=== PATIENT | male | born 1940 | race Caucasian/White ===

== ENCOUNTER 2017-02-18 06:55 | Outpatient (CLI) | payer MEDICARE ==
[~2017-02-18] VITALS: Ht 180.3 cm; Wt 93.2 kg
--- NOTE | ~2017-02-18 | HEMODYNAMI ---
PATIENT:ADAN KERR MEDICAL RECORD: [id number] : 42 LOCATION:DJoeCAT ADMISSION DATE: 02/18/17 Generatedon:02/18/201710:00 Patient name: ADAN KERR Patient #: [id number] : 1940 Date of study: 02/18/2017 Page: Of Hemodynamic Procedure Report Patient Data Patient Demographics Procedure consent was obtained First Name: ADAN Gender: Male Last Name: USHA : 1940 Middle Initial: L Age: 76 year(s) Patient #: [id number] Race: Unknown SSN: [id number] Additional ID: [id number] Contact details [address]: [address] [place] [address] State: [place] City: [place] Zip code: [address] Past Medical History Allergies Allergen Reaction Date Comments Reported Other allergy 02/18/2017 [facility] Admission Admission Data Admission Date: 02/18/2017 Admission Time: 6:55 Arrival Date: 02/18/2017 Arrival Time: 0:00 Admit Source: Other Insurance Payor: Medicare Height (in.): 70 BSA: 2.16 (m2) Height (cm.): 177.8 BMI: 30.99 (kg/m2) Weight (lbs.): 216 Weight (kg.): 97.98 Lab Results Lab Result Date: 02/18/2017 Lab Result Time: 0:00 Biochemistry Name Units Result Min Max BUN mg/dl 19 --(----)*- 7 18 Creatinine mg/dl 1 --(--*-)-- 0.6 1.3 CBC Name Units Result Min Max Hemoglobin g/dl 15.3 --(-*--)-- 13.5 17.5 Procedure Procedure Types Cath Procedure Diagnostic Procedure LHC LH w/Coronaries Miscellaneous Procedures Moderate Sedation up to 15 minutes Procedure Description Procedure Date Procedure Date: 02/18/2017 Procedure Start Time: 9:46 Procedure End Time: 9:59 Procedure Staff Name Function Jhon Bingham MD Performing Physician Valerio Cheek RT Scrub Gloria Euceda RT Monitor Arely Muñoz RN Nurse Procedure Data Cath Procedure Fluoroscopy Diagnostic fluoroscopy Total fluoroscopy Time: 1.6 time: 1.6 min min Diagnostic fluoroscopy Total fluoroscopy dose: 670 dose: 670 mGy mGy Contrast Material Contrast Material Type Amount (ml) Isovue 300 72 Entry Location Entry Primary Successful Side Size Upsize Upsize Entry Closure Matos ccessful Closure Location (Fr) 1 (Fr) 2 (Fr) Remarks Device Remarks Radial Right 6 Fr Mechanical TR band artery Short Compression Estimated blood loss: 10 ml Diagnostic catheters Device Type Used For End Catheter Placement Terumo 5Fr Demond 110cm Procedure catheter Procedure Complications No complications Procedure Medications Medication Administration Route Dosage Oxygen NC 2 l/min Heparin Flush Bag added to field 2 bags (1000units/500ml NS) Lidocaine 2% added to field 20 Radial Cocktail added to field 1 syringe (Verapomil 2mg/Nitro 400mcg/Heparin 1500units) Versed I.V. 1 mg Fentanyl I.V. 50 mcg Radial Cocktail I.A. 1 syringe (Verapomil 2mg/Nitro 400mcg/Heparin 1500units) Versed I.V. 1 mg Fentanyl I.V. 50 mcg Hemodynamics Rest BSA: 2.16 (m2) HGB: 15.3 (g/dl) O2 Consumption: Estimated: 237.87 (ml/min) O2 Co nsumption indexed: Estimated:110.12 (ml/min/m) Heart Rate: 57 (bpm) Pressure Samples Time Site Value (mmHg) Purpose Heart Use Rate(bpm) 9:47 LV 116/-5,7 Snapshot 79 9:48 AO 96/49(65) Pullback 77 9:48 LV 103/-5,4 Pullback 77 Gradients Valve Time Site 1 Site 2 Mean SEP/DFP Peak To Heart Use (mmHg) (sec/min) Peak Rate (mmHg) (bpm) Aortic 9:48 LV AO 11 6 7 77 103/-5,4 96/49(65) Calculations Valve P-P Mean Valve Index Valve Source Name Gradient Area Flow (cm2) Aortic 7 11 7 11 Snapshots Pre Cath Intra NCS Post Cath Vital Signs Time Heart Resp SPO2 NIBP (mmHg) Rhythm Pain Sedation Rate (ipm) (%) Status Level (bpm) 9:19:45 61 15 97 137/75(117) NSR 0 (11) 10(A) , No pain 9:24:03 66 17 98 129/74(104) NSR 0 (11) 10(A) , No pain 9:28:17 57 17 98 133/74(111) NSR 0 (11) 10(A) , No pain 9:32:31 61 20 98 139/77(122) NSR 0 (11) 10(A) , No pain 9:36:45 65 16 96 128/73(105) NSR 0 (11) 10(A) , No pain 9:40:59 76 16 97 118/69(88) NSR 0 (11) 10(A) , No pain 9:45:11 70 16 98 113/65(99) NSR 0 (11) 10(A) , No pain 9:49:20 68 18 97 112/58(92) NSR 0 (11) 9(A) , No pain 9:53:33 72 18 98 111/59(91) NSR 0 (11) 9(A) , No pain 9:57:42 69 19 96 108/63(82) NSR 0 (11) 9(A) , No pain Medications Time Medication Route Dose Verified Delivered Reason Notes E ffectiveness by by 9:27:02 Oxygen NC 2 l/min Jhon Arely Per Zachery Muñoz RN physician 9:27:15 Heparin Flush added 2 bags Jhon Jhon used for Bag to Zachery Bingham MD procedure (1000units/500ml field NS) 9:27:24 Lidocaine 2% added 20ml Jhon Jhon used for to vial Zachery Bingham MD procedure field 9:27:29 Radial Cocktail added 1 Jhon Jhon used for (Verapomil to syringe Zachery Bingham MD procedure 2mg/Nitro field 400mcg/Heparin 1500units) 9:43:00 Versed I.V. 1 mg Jhon Arely for sedation Zachery Muñoz RN 9:43:08 Fentanyl I.V. 50 mcg Jhon Arely for sedation Zachery Muñoz RN 9:45:09 Versed I.V. 1 mg Jhon Arely for sedation Zachery Muñoz RN 9:45:19 Fentanyl I.V. 50 mcg Jhon Arely for sedation Zachery Muñoz RN 9:47:00 Radial Cocktail I.A. 1 Jhon Ferreira for (Verapomil syringe Zachery Bingham MD vasodilation 2mg/Nitro 400mcg/Heparin 1500units) Procedure Log Time Note 8:13:31 Admit Source: Other 8:13:35 Arrival Date: 02/18/2017 12:00:00 AM 8:13:41 Insurance Payor : Medicare 8:13:59 Patient Height : 177.8 cm 8:14:06 Patient Weight : 97.98 kg 8:14:45 Diagnostic Cath Status : Elective 8:15:46 Time tracking: Regular hours 8:15:51 Plan of Care:Hemodynamics will remain stable., Cardiac rhythm will remain stable., Comfort level will be maintained., Respiratory function will remain adequate., Patient/ family verbilizes understanding of procedure., Procedure tolerated without complication., Recovers from procedure without complications.. 8:19:25 Lab Result : Hemoglobin 15.3 g/dl 8:19:25 Lab Result : Creatinine 1 mg/dl 8:19:25 Lab Result : BUN 19 mg/dl 9:00:45 Gloria Euceda RT(R) sent for patient. Start room use. 9:18:38 Vital chart was started 9:22:08 Use device set Radial Dx 9:22:09 Acist Syringe opened to sterile field. 9:22:09 Medline Cath Pack opened to sterile field. 9:22:10 Bag Decanter opened to sterile field. 9:22:10 Terumo 6Fr Slender Glidesheath opened to sterile field. 9:22:11 St Rob 260cm J .035 wire opened to sterile field. 9:22:11 Acist Hand Control opened to sterile field. 9:22:12 Acist Manifold opened to sterile field. 9:22:12 Tegaderm 4 x 4 opened to sterile field. 9:22:13 MBrace Wrist Support opened to sterile field. 9:27:02 Oxygen 2 l/min NC was administered by Arely Muñoz RN; Per physician; 9:27:15 Heparin Flush Bag (1000units/500ml NS) 2 bags added to field was administered by Jhon Bingham MD; used for procedure; 9:27:24 Lidocaine 2% 20ml vial added to field was administered by Jhon Bingham MD; used for procedure; 9:27:29 Radial Cocktail (Verapomil 2mg/Nitro 400mcg/Heparin 1500units) 1 syringe added to field was administered by Jhon Bingham MD; used for procedure; 9:32:33 Patient received from Outpatients to CCL 2 Alert and oriented. Tansferred to table in Supine position. 9:32:35 Warm blankets applied, and ruiz hugger turned on for patient comfort. 9:32:35 Correct patient and procedure confirmed by team. 9:32:38 Signed procedure consent form obtained from patient. 9:32:39 ECG and BP/O2 sat monitors applied to patient. 9:32:41 Baseline sample Acquired. 9:32:46 Rhythm: sinus rhythm 9:32:48 Full Disclosure recording started 9:33:05 H&P Date Dictated: 02/03/2017 Within 30 days and on chart., H&P Addendum completed by physician on day of procedure. (MUST COMPLETE FOR ALL OUTPATIENTS). 9:33:07 Pre-procedure instructions explained to patient. 9:33:09 Family in waiting room. 9:33:12 Patient NPO since Midnight. 9:33:26 Patient allergic to Other allergyPCN 9:33:29 Is the patient allergic to Iodine/contrast media? No. 9:33:32 Is patient on blood thinner?No 9:33:33 Patient diabetic? Yes. 9:33:34 If diabetic: On Metformin? Yes 9:33:39 If on Metformin: Last Dose? 02/16/2017 9:33:45 Snore? Yes 9:33:47 Sleep apnea? No 9:34:13 Patient pain scale 0/10 ?. 9:34:21 IV patent on arrival in left forearm with 0.9% NaCl at KVO. 9:34:29 Lab results completed and on chart. 9:34:32 Right Radial & Right Groin area was prepped with chlora-prep and draped in sterile fashion 9:34:34 Alarms reviewed by R. N. 9:34:34 Sharps counted by scrub and verified by R.N. 9:34:35 Physician paged 9:42:54 Physician arrived 9:42:55 --------ALL STOP TIME OUT------ 9:42:56 Final Timeout: patient, procedure, and site verified with staff and physician. All members of the team are in agreement. 9:42:58 Right Radial & Right Groin site verified by team. 9:43:00 Versed 1 mg I.V. was administered by Arely Muñoz RN; for sedation; 9:43:03 Sedation plan: IV Moderate Sedation Versed, Fentanyl 9:43:08 Fentanyl 50 mcg I.V. was administered by Arely Muñoz RN; for sedation; 9:43:08 Physical assessment completed. ASA score P 2 - A patient with mild systemic disease as per Jhon Bingham MD. 9:45:09 Versed 1 mg I.V. was administered by Arely Muñoz RN; for sedation; 9:45:19 Fentanyl 50 mcg I.V. was administered by Arely Muñoz RN; for sedation; 9:45:50 Procedure started. 9:46:03 Local anesthetic to right radial artery with Lidocaine 2% by Jhon Bingham MD.INITIAL ACCESS ONLY 9:46:42 A 6 Fr Short sheath was inserted into the Right Radial artery 9:46:52 J wire advanced. 9:47:00 Radial Cocktail (Verapomil 2mg/Nitro 400mcg/Heparin 1500units) 1 syringe I.A. was administered by Jhon Bingham MD; for vasodilation; 9:47:20 A Terumo 5Fr Demond 110cm catheter was advanced over the wire and used for Procedure. 9:47:24 LV angiography performed. 9:47:54 EF : 55 % 9:48:19 LCA angiography performed. 9:53:04 RCA angiography performed. 9:54:51 Catheter removed. 9:55:18 Terumo TR Band Standard opened to sterile field. 9:55:59 Sheath removed intact; hemostasis achieved with Mechanical Compression to the Right Radial artery. 9:56:03 Procedure ended.(Physican Out) 9:56:13 Fluoroscopy time 01.60 minutes. 9:56:22 Fluoroscopy dose: 670 mGy 9:56:22 Flurop Dose total: 670 9:56:26 Contrast amount:Isovue 300 72ml. 9:56:28 Sharps counted by scrub and verified by R.N. 9:56:32 TR band inflated with 11cc of air. 9:58:13 Post right radial artery:stable 9:58:15 Post Procedure Pulses reassessed and unchanged 9:58:21 Post-procedure physical assessment completed. ASA score P 2 - A patient with mild systemic disease as per Jhon Bingham MD. 9:58:25 Post procedure rhythm: unchanged. 9:58:28 Estimated blood loss: 10 ml 9:58:36 Post procedure instruction explained to patient.Patient verbalizes understanding. 9:58:53 Patient needs reinforcement of post procedure teaching. 9:58:58 Procedure and supply charges have been captured, reviewed, submitted and are correct. 9:58:58 Procedure and supply charges have been captured, reviewed, submitted and are correct. 9:59:19 Procedure Complication : No complications 9:59:22 Vital chart was stopped 9:59:22 See physician's report for complete and final results. 9:59:26 Report given to Pre/Post Procedure Room. 9:59:31 Patient transfered to Pre/Post Procedure Room with Stretcher. 9:59:34 Procedure ended. 9:59:34 Full Disclosure recording stopped 9:59:37 End room use (Document Last) Device Usage Item Name Manufacture Quantity Catalog Hospital Part Current Minimal Lot# / Number Charge Number Stock Stock Serial# Code Acist Acist 1 52298 439942 965207 [id number] 20 Syringe Medical Systems Inc Medline Cardinal 1 [id number] 144266 15691 756041 5 Cath Pack Health Bag Microtek 1 2001S 766819 67746 037424 5 DecVarsity Optics [employer] Inc. Terumo 6Fr Terumo 1 [id number] 062668 887461 848952 [address] Rob St Rob 1 758325 570294 320686 766577 30 260cm J .035 wire Acist Hand Acist 1 83870 836370 494034 485072 5 Control Medical Systems Inc Acist Acist 1 57560 657780 493384 059594 5 Manifold Medical Systems Inc Tegaderm 4 3M 1 1626W 630364 236663 267020 5 x 4 MBrace Advanced 1 140-0250-00 811796 02437 240013 5 Wrist Vascular Support Dynamics Terumo 5Fr Terumo 1 40-5654 563119 592845 280042 5 Demond 110cm catheter Terumo TR Terumo 1 [id number] 979045 677308 779932 40 Band Standard Signature Audit [place] Stage Time Signature Unsigned Intra-Procedure 02/18/2017 Gloria Euceda 10:00:13 AM RT(R) Signatures Monitor : Gloria Euceda Signature : RT Date : Time : [address] [address]
--- NOTE | ~2017-02-18 | OP ---
PATIENT NAME: ADAN KERR MEDICAL RECORD: [id number] :42 LOCATION:D.CAT ADMISSION DATE: SURGEON: MARY MARTINS M.D. DATE OF OPERATION: 02/18/2017 PROCEDURES PERFORMED: 1. Selective coronary angiography. 2. Left heart catheterization with ventriculogram. INDICATION: A 76-year-old gentleman who presents with symptoms of accelerating angina. EQUIPMENT USED: A 5-Turkmen Demond catheter. TECHNIQUE: A 6-Turkmen sheath was inserted in retrograde fashion in the right radial artery. Next, selective coronary angiography was performed in standard views using 5-Turkmen Demond catheter. Left heart catheterization was performed using Demond catheter as well. CORONARY ANATOMY: 1. Left main: Left main trunk is large in caliber. It gives rise to the LAD and circumflex. In the distal aspect before the bifurcation, there appears to have a 70%-80% stenosis. 2. LAD: This is a large caliber vessel extending to the apex. The proximal vessel demonstrates a 67% stenosis at the level of first diagonal branch. The second diagonal branch has an ostial 70% stenosis as well. The mid LAD has an ulcerated 70% stenosis. 3. Circumflex: This vessel is moderate in caliber. It was quite angulated in the proximal segment. It is difficult to know whether or not this represents a lesion or just severe tortuosity of the vessel. 4. Right coronary: This vessel is large in caliber and dominant. It is a smooth-walled vessel and angiographically normal. 5. Left ventricle: Left ventricle is normal in size and function. No wall motion abnormalities are noted. Estimated ejection fraction is 55%. IMPRESSION: 1. Significant disease involving the distal left main, left anterior descending and diagonal. 2. Normal left ventricular function. RECOMMENDATIONS: I am concerned about the left main stenosis. He is having symptoms of angina. He may benefit long-term with bypass grafting. I will review the case with the patient. TRANSINT:[id number] Voice Confirmation ID: [id number] DOCUMENT ID: [id number] MARY MARTINS M.D. CC: [id number] DICTATION DATE: 02/18/17 1004 ANIMAL CARE ATTENDANT: 02/18/17 1050 [facility] [address] [place] [address]
[2017-02-18] MEDS ORDERED: PRINIVIL20 MG PO (07:31)
[2017-02-18] MEDS ORDERED: GLUCOPHAGE500 MG PO (07:31)
[2017-02-18] MEDS ORDERED: ZOCOR20 MG PO (07:32)
[2017-02-18] MEDS ORDERED: NITROQUICK0.4 MG SL (07:32)
[2017-02-18 07:39] VITALS: BP 140/70; Ht 180.3 cm; Wt 93.2 kg
[2017-02-18 07:49] LABS: BASOPHILS 0.3 % (0-2); EOSINOPHILS 2.6 % (0-7); HEMATOCRIT 44.7 % (42.0-54.0); HEMOGLOBIN 15.3 g/dL (13.5-17.5); IMMATURE GRANULOCYTES 0.3 % (0-5); LYMPHOCYTES 37.3 % (15-50); MCH 30.4 pg (26.0-34.0); MCHC 34.2 g/dL (31.0-37.0); MCV 88.9 fL (80.0-100.0); MEAN PLATELET VOLUME 9.6 fL (7.4-10.4); MONOCYTES 9.3 % (2-11); NEUTROPHILS 50.2 % (40-80); PLATELET COUNT 175 10x3/uL (130-400); RBC 5.03 10x6/uL (4.20-6.10); RDW 12.9 % (11.5-14.5); WBC 6.2 10x3/uL (4.8-10.8)
[2017-02-18 08:09] LABS: CALC OSMOLALITY 281 mosm/kg (275-300); CALCIUM 8.9 mg/dL (8.5-10.1); CHLORIDE - SERUM 105 mmol/L (98-107); GLUCOSE 122 mg/dL (74-106); POTASSIUM - SERUM 4.3 mmol/L (3.5-5.1); SODIUM 140 mmol/L (136-145); UREA NITROGEN 19 mg/dL (7-18); eGFR NON AFRICAN AMERICAN 77 mL/min (90-120)
--- NOTE | 2017-02-18 10:15 | NUR ---
1015 RECEIVED PT FROM [facility]PET [facility]ER, PT IS DROWSY, AWAKENS TO VERBAL STIMULI. DENIES ANY C/O CHEST PAIN OR NAUSEA. TR BAND IS CDI TO RIGHT WRIST, NO BLEEDING OR HEMATOMA NOTED. FINGERS WARM, CAP REFILL IS BRISK. RR EVEN AND UNLABORED, SAT IS 95% ON O2 AT 2 LPM VIA NC. AT BEDSIDE. CALL LIGHT IN REACH.
--- NOTE | 2017-02-18 10:35 | NUR ---
1030 PT DENIES ANY C/O. TR BAND IS CDI, FINGERS WARM TO TOUCH, CAP REFILL IS BRISK, VSS, AT BEDSIDE.
--- NOTE | 2017-02-18 10:58 | NUR ---
1100 PT DENIES ANY C/O. TR BAND IS CDI, NO BLEEDING OR HEMATOMA NOTED. CAP REFILL IS BRISK. SANDWICH AND PO FLUIDS SERVED. AT BEDSIDE. PT DENIES NEEDS AT THIS TIME.
--- NOTE | 2017-02-18 11:30 | NUR ---
1130 TR BAND DEFLATION HAS BEGUN, NO BLEEDING OR HEMATOMA NOTED AT SITE.
--- NOTE | 2017-02-18 12:00 | NUR ---
1200 TR BAND DEFLATED WITH NO BLEEDING OR HEMATOMA NOTED. 2X2 AND TEGADERM APPLIED TO SITE. PT DENIES ANY C/O AT THIS TIME. AT BEDSIDE.
--- NOTE | 2017-02-18 12:45 | NUR ---
1245 IV HAS BEEN DC'D WITH CATH INTACT. PT IS DRESSING FOR DC TO HOME. DRESSING TO CATH SITE IS CDI, NO BLEEDING OR HEMATOMA NOTED.
--- NOTE | 2017-02-18 13:14 | NUR ---
1256 DC INSTRUCTIONS REVIEWED WITH PT WHO VERBALIZES UNDERSTANDING. PT ESCORTED TO PRIVATE AUTO VIA WC BY STAFF WITH DRIVING HIM HOME.
== END 2017-02-18 12:55 | disposition home or self-care (01) ==
LOC: D.CATH 06:55
PROVIDERS: Internal Medicine Cardiovascular Disease
DX: I25.110 Atherosclerotic heart disease of native coronary artery with unstable angina pectoris (principal)

== ENCOUNTER → 2017-03-10 15:20 | Outpatient (CLI) | payer MEDICARE ==
[2017-02-18 07:39] VITALS: BMI 28.6
[~2017-03-10 15:20] MED LIST: GLUCOPHAGE500 MG PO; NITROQUICK0.4 MG SL; PRINIVIL20 MG PO; ZOCOR20 MG PO
== END | disposition home or self-care (01) ==
LOC: D.LAB 15:20 → D.US 16:00
DX: I65.23 Occlusion and stenosis of bilateral carotid arteries (principal); Z01.812 Encounter for preprocedural laboratory examination

== ENCOUNTER 2017-03-19 05:05 | Inpatient (IN) | payer MEDICARE ==
--- NOTE | 2017-03-13 13:32 | HP ---
PATIENT: ADAN KERR MEDICAL RECORD: [id number] ACCOUNT: [id number] LOCATION:[facility] : 42 ADMISSION DATE: 03/19/17 HISTORY AND PHYSICAL EXAMINATION ADNA Burch (76yo, M) ID# [id number]. Date/Time03/10/2017 01:28ZTUAK1941Service Dept.NPP_[facility] ClinicProviderEDRONNIE PETE MDInsuranceMed Primary: [facility] (MEDICARE REPLACEMENT/ADVANTAGE - HMO) Insurance # : [id number] Policy/Group # : [id number] Employer Name : [employer] Prescription: ORX - Member is eligible. Chief Complaint Coronary artery disease Patient's Care Team Rental Car Ferry Driver: MARY MARTINS MD: [address] [place] [phone], , Primary Care Provider: RADHA SANTANA MD: [address] [place] [address] [address] [address], , [facility] (ERX): [phone] [address], , F ax Vitals BP:150/80 sitting R arm 03/10/2017 01:54 pm 130/70 sitting L arm 03/10/2017 01:54 pmHR:80R/R 03/10/2017 01:54 pmHt:5 ft 11 in 03/10/2017 01:43 pmWt:205 lbs 03/10/2017 01:52 pmBMI:28.6 03/10/2017 01:52 pmAllergies Allergies not reviewed (last reviewed 07/23/2014) PENICILLINSMedications Medications not reviewed (last reviewed 02/01/2017) Boostrix Tdap 2.5 Lf unit-8 mcg-5 Lf/0.5 mL intramuscular syringe USE XVEACMDM97/03/14 filledMEDIMPACTchlorhexidine gluconate 0.12 % fheecgvfl93/16/14 filledMEDIMPACTCialis 20 mg tablet TAKE BPWIEAFQ55/25/12 prescribedPeri Schwartz,Ultra Thin04/24/15 filledsurescriptslisinopril 20 mg tablet TAKE 1 TABLET BY MOUTH EVERY DAY11/28/16 filledPRESCRIPTION SOLUTIONSmetFORMIN 500 mg tablet TAKE 1 TABLET BY MOUTH EVERY NIGHT AT GKOGTCY67/31/17 filledPRESCRIPTION SOLUTIONSnitroglycerin 0.4 mg sublingual tablet DISSOLVE TNT01/13/17 filledsurescriptsNizoral A-D 1 % shampoo APPLY SHAMPOO Q THIRD DAY LATHER RINSE AND QAMSTN93/27/15 filledsurescriptsOneTouch Delica Lancets 33 gauge TEST ONCE D012/22/16 filledsurescriptsOneTouch Ultra Test strips USE TO TEST ONCE PER DAY03/03/17 renewedDominick Schwartzimvastatin 20 mg tablet TAKE 1 TABLET BY MOUTH EVERY DAY02/19/17 filledPRESCRIPTION SOLUTIONSProblems Reviewed Problems Coronary arteriosclerosis - Onset: 03/10/2017 Open wound of finger Hypercholesterolemia Seborrheic dermatitis of scalp Insomnia Impotence of organic origin Diabetic neuropathy HISTORY AND PHYSICAL [id number] ADAN KERR Malaise and fatigue Chest pain Depressive disorder Impotence Seborrheic keratosis Dysphagia Onychomycosis Inflamed seborrheic keratosis Coronary atherosclerosis - Onset: 03/08/2017 Seborrheic dermatitis Hyperlipidemia Verruca vulgaris Essential hypertension Dyspnea on exertion Tinnitus Adverse reaction to drug Diabetes mellitus Family History Discussed Family History Social History Discussed Social History Cardiology Family history of heart disease?: Y Smoking Status: Never smoker High Cholesterol: Y High blood pressure: Y Diabetes: Y Alcohol intake: Occasional Is blood transfusion acceptable in an emergency?: Y Surgical History Reviewed Surgical History Other - Right hand Other cholecycetomy Past Medical History Discussed Past Medical History Chest Pain: Y Diabetes: Y Heart Disease: Y High Blood Pressure: Y Shortness of Breath: Y Documents for Discussion N/A Screening None recorded. HPI Coronary Artery Disease F/U Reported by patient. Associated Symptoms: dyspnea with exertion severe coronary artery disease with angina pectoris ROS Patient reports exercise intolerance but reports no fever, no night sweats, no HISTORY AND PHYSICAL [id number] ADAN KERR significant weight gain, and no significant weight loss. He reports growths/lesions (senile keratosis) but reports no abnormal mole, no jaundice, and no rashes. He reports no dr y eyes, no irritation, and no vision change. He reports no difficulty hearing and no ear pain. He reports no frequent nosebleeds and no nose/sinus problems. He reports no sore throat, no bleeding gums, no snoring, no dry mouth, no mouth ulcers, no oral ab n ormalities, and no teeth problems. He reports no chest pain, no arm pain on exertion, no shortness of breath when walking, no shortness of breath when lying down, no palpitations, and no known heart murmur. He reports no cough, no wheezing, no shortness o f breath, and no coughing up blood. He reports no abdominal pain, no vomiting, normal appetite, no diarrhea, not vomiting blood, no nausea, and no constipation. He reports no incontinence, no difficulty urinating, no hematuria, and no increased frequency. H e reports no muscle aches, no muscle weakness, no arthralgias/joint pain, no back pain, and no swelling in the extremities. He reports no loss of consciousness, no weakness, no numbness, no seizures, no dizziness, and no headaches. He reports no depressio n, no sleep disturbances, feeling safe in relationship, and no alcohol abuse. He reports no fatigue. He reports no runny nose, no sinus pressure, no itching, no hives, and no frequent sneezing. ROS as noted in the HPI Physical Exam Patient is a 76-year-old male. Constitutional: General Appearance well nourished and developed and healthy-appearing. Level of Distress NAD. Ambulation ambulating normally. Cardiovascular: Apical Impulse not displaced or no thrill. Heart Auscultation normal s1 and s2; no murmurs, rubs, or gallops; and RRR. Arterial Pulses no abdominal aorta bruits, femoral bruits, or popliteal bruits and 2+ bilateral, carotid 2+ bilateral, femoral 2+ bilateral, popliteal 2+ bilateral, and dorsalis p bailey 2+ bilateral. Edema no edema or varicosities. Lungs: Repiratory Effort no dyspnea. Percussion no hyperresonance or dullness or flatness. Auscultation no wheezing, rhonchi, or rales / crackles and breathing sounds normal, good air movement, and CTA except as noted. Abdomen: Bowl Sounds normal. Inspection and Palpation no tenderness, guarding, masses, or rebound tenderness and soft and non-distended. Liver non-tender and no hepatomegaly. Spleen non-tender and no splenomegaly. Hernia none palpable. Musculoskeletal System: Gait And Stance normal gait and stance. Digits and Nails normal nails and no cyanosis. Neurologic: Cranial Nerves grossly intact. Reflexes DTRs 2+ bilaterally throughout. Sensation grossly intact. Lymph Nodes: Lymph Nodes no cervical LAD, supraclavicular LAD, axillary LAD, or inguinal LAD. Eyes: Lids and Conjunctivae no discharge or pallor and non-injected. Pupils PERRLA. Cornea grossly intact. EOM EOMI. Lens clear. Sclerae non-icteric. Neck: Neck no masses, enlarged lymph nodes, or carotid bruits and supple and trachea midline. Thyroid no enlargement or nodules and non-tender. Skin: Inspection and Palpation no rash, lesions, ulcers, jaundice, or abnormal nevi. HISTORY AND PHYSICAL [id number] ADAN KERR Assessment / Plan severe occlusive coronary artery disease left main Angina pectoris with exercise 1. Coronary arteriosclerosis I25.10: Atherosclerotic heart disease of [place] coronary artery without angina pectoris Discussion Notes severe occlusive coronary artery disease with angina schedule coronary artery bypass I have discussed his disease process with him and his in detail as well as the alternative methods of treatment. I discussed coronary artery bypass including the expected benefits and risk which included bleeding, infection, stroke, , and the im ponderables. He understands all of the above and wishes to proceed with planned coronary bypass. Scheduled for carotid Doppler studies. REID PETE MD at 1332 CC: [id number] DICTATION DATE: 03/10/17 1300 A AUXILIARY: JANETTE 03/11/17 0959 PRE IN [facility] [address] [place] [address]
[2017-03-17 11:40] LABS: BASOPHILS 0.5 % (0-2); HEMATOCRIT 46.4 % (42.0-54.0); HEMOGLOBIN 15.5 g/dL (13.5-17.5); IMMATURE GRANULOCYTES 0.2 % (0-5); MCH 30.4 pg (26.0-34.0); MCHC 33.4 g/dL (31.0-37.0); MEAN PLATELET VOLUME 9.7 fL (7.4-10.4); MONOCYTES 9.6 % (2-11); NEUTROPHILS 43.7 % (40-80); RDW 12.6 % (11.5-14.5)
[2017-03-17 11:43] LABS: APPEARANCE CLEAR (CLEAR); BILIRUBIN NEGATIVE (NEGATIVE); COLOR YELLOW (YELLOW); GLUCOSE NEGATIVE (NEGATIVE); KETONE NEGATIVE (NEGATIVE); LEUKOCYTE ESTERASE NEGATIVE (NEGATIVE); NITRITE NEGATIVE (NEGATIVE); PLATELET COUNT 215 10x3/uL (130-400); PROTEIN NEGATIVE (NEGATIVE); UROBILINOGEN NORMAL (NORMAL)
[2017-03-17 11:48] LABS: APTT 36.4 SECONDS (22.8-39.4); INR 0.9 (0.85-1.17)
[2017-03-17 11:54] LABS: HEMOGLOBIN A1C 5.9 % (4.8-6.0)
[2017-03-17 12:06] LABS: ALBUMIN 3.9 g/dL (3.4-5.0); ANION GAP 10.9 mmol/L (8-16); BILIRUBIN - TOTAL 1.2 mg/dL (0.2-1.3); CALCIUM 8.9 mg/dL (8.5-10.1); CARBON DIOXIDE 28.7 mmol/L (21.0-32.0); CREATININE - SERUM 1.1 mg/dL (0.6-1.3); PHOSPHOROUS 3.7 mg/dL (2.5-4.9); POTASSIUM - SERUM 4.6 mmol/L (3.5-5.1); PROTEIN - SERUM 7.6 g/dL (6.4-8.2); T4 THYROXIN - FREE 1.28 ng/dL (0.76-1.46); THYROID STIMULATING HORMONE 2.76 uIU/mL (0.36-3.74); URIC ACID 6.3 mg/dL (2.6-7.2)
[2017-03-17 14:48] LABS: COLD SCREEN @ 4 DEGREES 1+ (NEGATIVE); COLD SCREEN ROOM TEMP NEGATIVE (NEGATIVE)
[~2017-03-19] VITALS: Ht 180.3 cm; Wt 95.9 kg
[2017-03-19] VITALS (36 sets, daily range): BP systolic 99–141; BP diastolic 45–76; BMI 28.8
[~2017-03-19 05:05] MED LIST changes: +BAYER CHEWABLE81 MG PO; +CENTRUM SILVER1 TA1 PO; +FLAXSEED OIL1000 MG PO; +GLUCOSAMINE & C1 CAP PO; +OMEGA 3 FISH OI1 CAP PO
[2017-03-19 07:53] LABS: PLT FUNCT.(P2Y12) PLAVIX 294 PRU (194-418)
[2017-03-19 13:44] LABS: HEMATOCRIT 31.3 % (42.0-54.0); HEMOGLOBIN 10.8 g/dL (13.5-17.5); MCH 30.5 pg (26.0-34.0); MCHC 34.5 g/dL (31.0-37.0); MCV 88.4 fL (80.0-100.0); MEAN PLATELET VOLUME 9.4 fL (7.4-10.4); RBC 3.54 10x6/uL (4.20-6.10); RDW 12.3 % (11.5-14.5); WBC 12.1 10x3/uL (4.8-10.8)
[2017-03-19 13:56] LABS: APTT 39.4 SECONDS (22.8-39.4); CALC OSMOLALITY 292 mosm/kg (275-300); CALCIUM 7.2 mg/dL (8.5-10.1); CARBON DIOXIDE 25.2 mmol/L (21.0-32.0); CHLORIDE - SERUM 109 mmol/L (98-107); CREATININE - SERUM 0.9 mg/dL (0.6-1.3); INR 1.33 (0.85-1.17); POTASSIUM - SERUM 4.3 mmol/L (3.5-5.1); PROTIME 16.4 SECONDS (11.6-15.0); SODIUM 144 mmol/L (136-145); UREA NITROGEN 22 mg/dL (7-18); eGFR NON AFRICAN AMERICAN 87 mL/min (90-120)
[2017-03-19 13:58] LABS: GLUCOSE 159 mg/dL (74-106)
--- NOTE | 2017-03-19 16:15 | NUR ---
TPM CHANGES PER DR. PETE. NOW VVI 60 VMA 10.
--- NOTE | 2017-03-19 17:36 | NUR ---
K+ REPLACEMENT PER PROTOCOL.
--- NOTE | 2017-03-19 18:54 | NUR ---
209 CC DISCREPANCIES NOTED IN FLOWER CATH VS WHAT CRITICORE OUTPUT STATES.
--- NOTE | 2017-03-19 19:15 | NUR ---
ABGS DRAWN AND RESULTED. AM RN REPORTED TO DR PETE. ORDERS RECVD TO TREAT BASE EXCESS WITH ONE AMP AND TREAT K+ PER ORDERS.
--- NOTE | 2017-03-19 19:15 | NUR ---
REPORT RECVD. CARE ASSUMED.
--- NOTE | 2017-03-19 19:25 | NUR ---
EXTUBATED TO 4LPM NC NO DIFF. SPO2 97%. LAND CLEARER MORPHINE TO BE STARTED FOR PAIN CONTROL. VSS. CONT CURRENT POC.
--- NOTE | 2017-03-19 19:30 | NUR ---
INITIAL ASSMNT COMPLETED. SEE FLOWSHEET FOR ALL FINDINGS. AWAKE AND AOX4. RESP SHALLOW, UNLABORED. ON O2 AT 2LPM NC. LUNGS CTA, DIM IN BASES. ST ON THE MONITOR. PULSES PALP. RIGHT RADIAL A-LINE ZEROED AND BALANCED. GOOD WAVE FORM SEEN. SYS B/P WITHIN PARAMETERS. DOPAMINE AND NTG GTTS IN USE. RIGHT IJ SWAN LOCKED, PATEDNT AND SECURED. CARDIAC MONITORING PER VIGILENCE WITHIN PARAMETERS. TEMP PM VVI 60, SENSING ONLY. STERNAL DRESSINGS CDI. CHEST TUBES X3 PATENT AND SECURED TO 20 SM SX. MINIMAL BLOODY DRNG SEEN. ABS SOFT. BSA X4. F/C PATENT TO CRITICORE WITH BOBO UOP. AFEBRILE. TEDS/SCDS IN USE. RIGHT LEG DRESSING CDI. MUSIC THEORY PROFESSOR MORPHINE IN USE FOR PAIN CONTROL. REPOSITIONED FOR COMFORT. HOB UP. 1:[address] CONT CURRENT POC.
--- NOTE | 2017-03-19 21:11 | NUR ---
FAMILY AT BEDSIDE. UPDATE GIVEN.
--- NOTE | 2017-03-19 22:20 | NUR ---
LISETH DRAWN AND RESULTED. K+ TREATED PER SLIDING SCALE.
--- NOTE | 2017-03-19 23:15 | NUR ---
REASSESSMENT COMPLETED. SEE FLOWSHEET FOR ALL FINDINGS. RESTFUL.AOX4. RESP SHALLOW, UNLABORED. ON O2 AT 2LPM NC. LUNGS CTA, DIM IN BASES. ST ON THE MONITOR. PULSES PALP. RIGHT RADIAL A-LINE INTACT. GOOD WAVE FORM SEEN. SYS B/P WITHIN PARAMETERS. DOPAMINE AND NTG GTTS IN USE. RIGHT IJ SWAN LOCKED, PATEDNT AND SECURED. CARDIAC MONITORING PER VIGILENCE WITHIN PARAMETERS. TEMP PM VVI 60, SENSING ONLY. STERNAL DRESSINGS CDI. CHEST TUBES X3 PATENT AND SECURED TO 20 SM SX. MINIMAL BLOODY DRNG SEEN. ABD SOFT. BSA X4. F/C PATENT TO CRITICORE WITH BOBO UOP. AFEBRILE. TEDS/SCDS IN USE. RIGHT LEG DRESSING CDI. RETAIL FINANCIAL ANALYST MORPHINE IN USE FOR PAIN CONTROL. REPOSITIONED FOR COMFORT. HOB UP. 1:[address] CONT CURRENT POC.
[2017-03-20] VITALS (95 sets, daily range): BP systolic 95–132; BP diastolic 42–68; Ht 180.3 cm; Wt 95.9 kg
--- NOTE | 2017-03-20 01:05 | NUR ---
RESTING WITH EYES CLOSED. NO DISTRESS. VSS. TURNED AND REPOSITIONED. HOB UP. REMAINS IN 1:1 NURSE MONITORING. CONT CURRENT POC.
--- NOTE | 2017-03-20 02:50 | NUR ---
ABGS DRAWN AND RESULTED. ALL VALUES WITHIN PARAMETERS. NO TX NECESSARY. CONT POC.
--- NOTE | 2017-03-20 03:15 | NUR ---
REASSESSMENT COMPLETED. SEE FLOWSHEET FOR ALL FINDINGS. RESTFUL.AOX4. RESP SHALLOW, UNLABORED. ON O2 AT 2LPM NC. LUNGS CTA, DIM IN BASES. ST ON THE MONITOR. PULSES PALP. RIGHT RADIAL A-LINE INTACT. GOOD WAVE FORM SEEN. SYS B/P WITHIN PARAMETERS. DOPAMINE AND NTG GTTS IN USE. RIGHT IJ SWAN LOCKED, PATEDNT AND SECURED. CARDIAC MONITORING PER VIGILENCE WITHIN PARAMETERS. TEMP PM VVI 60, SENSING ONLY. STERNAL DRESSINGS CDI. CHEST TUBES X3 PATENT AND SECURED TO 20 SM SX. MINIMAL BLOODY DRNG SEEN. ABD SOFT. BSA X4. F/C PATENT TO CRITICORE WITH BOBO UOP. AFEBRILE. TEDS/SCDS IN USE. RIGHT LEG DRESSING CDI. ASSISTANT DISTRICT ATTORNEY MORPHINE IN USE FOR PAIN CONTROL. REPOSITIONED FOR COMFORT. HOB UP. 1:[address] CONT CURRENT POC.
--- NOTE | 2017-03-20 05:21 | NUR ---
RIGHT LEG DRESSING CHANGED PER ORDERS. TURNED AND REPOSITIONED. VSS. HOB UP. 1:[address] CONT CURRENT POC.
[2017-03-20 06:12] LABS: HEMATOCRIT 27.6 % (42.0-54.0); HEMOGLOBIN 9.4 g/dL (13.5-17.5); MCH 30.2 pg (26.0-34.0); MCHC 34.1 g/dL (31.0-37.0); MCV 88.7 fL (80.0-100.0); MEAN PLATELET VOLUME 9.6 fL (7.4-10.4); RBC 3.11 10x6/uL (4.20-6.10); RDW 12.8 % (11.5-14.5); WBC 12.2 10x3/uL (4.8-10.8)
--- NOTE | 2017-03-20 06:30 | NUR ---
ABGS DRAWN AND RESULTED. NO TX REQUIRED PER ORDERS. CONT POC.
[2017-03-20 06:38] LABS: ALBUMIN 3.6 g/dL (3.4-5.0); ALKALINE PHOSPHATASE 33 U/L (46-116); ALT (SGPT) 27 U/L (10-68); BILIRUBIN - TOTAL 1.45 mg/dL (0.2-1.3); CALC OSMOLALITY 295 mosm/kg (275-300); CALCIUM 7.9 mg/dL (8.5-10.1); CARBON DIOXIDE 27.8 mmol/L (21.0-32.0); CHLORIDE - SERUM 111 mmol/L (98-107); CREATININE - SERUM 0.9 mg/dL (0.6-1.3); GLUCOSE 121 mg/dL (74-106); POTASSIUM - SERUM 4.5 mmol/L (3.5-5.1); PROTEIN - SERUM 5.7 g/dL (6.4-8.2); SODIUM 147 mmol/L (136-145); UREA NITROGEN 21 mg/dL (7-18); eGFR NON AFRICAN AMERICAN 87 mL/min (90-120)
--- NOTE | 2017-03-20 07:20 | NUR ---
BED BATH AND LINEN CHANGE COMPLETED. HAIR SHAMPOO CAP USED. ABDOMINAL DRESSING CHANGED. TURN COUGH AND DEEP BREATHING DONE. MEDICAL RECEPTIONIST MEDICAL ASSISTANT IN HAND FOR USE. C/L IN REACH.
--- NOTE | 2017-03-20 09:15 | NUR ---
FAMILY AT BEDSIDE. NO CURRENT NEEDS.
--- NOTE | 2017-03-20 09:40 | NUR ---
MESSAGE SENT TO PHARMACY REQUESTING 1000 VANCOMYCIN NEED.
--- NOTE | 2017-03-20 10:50 | NUR ---
SPOKE WITH ROCCO IN PHARMACY. STATES SHE WILL MAKE DOSE NOW AND APPOLIGIZES FOR DELAY.
--- NOTE | 2017-03-20 11:10 | NUR ---
RECIEVED VANC DOSE. SEE MAR FOR ADMINISTRATION.
--- NOTE | 2017-03-20 12:08 | OP ---
PATIENT NAME: ADAN KERR MEDICAL RECORD: [id number] :41 LOCATION:[facility] D.CV05 ADMISSION DATE:03/19/17 SURGEON: PARISH CAMPOVERDE MD DATE OF OPERATION: 03/19/2017 SURGEON: Parish Campoverde MD ANESTHESIA: General endotracheal, Dr. Espinoza. OPERATIONS PERFORMED: Aortocoronary artery bypass utilizing left internal thoracic, left anterior descending and reverse saphenous vein segments sequential second diagonal, sequential obtuse marginal coronary artery. 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 POSTOPERATIVE DIAGNOSES: Severe occlusive coronary artery disease and angina pectoris. INDICATION FOR OPERATION: Angina pectoris. FINDINGS AT OPERATION: The left internal thoracic was an excellent conduit as was the right greater saphenous vein. The target vessels were of good caliber and quality. ESTIMATED BLOOD LOSS: Cell Saver was used. DESCRIPTION OF PROCEDURE: After informed consent, adequate preoperative medication evaluation, the patient was brought to the operating room, placed on the table in the supine position. After induction of general endotracheal anesthesia and application of appropriate monitoring devices and transesophageal echo, the patient was prepped and draped in a sterile field, utilizing Betadine scrub, alcohol, and Betadine solution. Betadine-impregnated drape was also used. Saphenous vein was harvested from the right thigh and prepared for reverse saphenous vein grafting. The leg was closed over drains utilizing 3-0 Vicryl and skin linda. A median sternotomy incision was used and dissection carried down the fascia. Hemostasis maintained with electrocautery. The left internal thoracic was taken down and prepared for grafting. The patient was given a calculated dose of heparin, cannulated in the standard fashion utilizing 1 aortic, 1 two-stage cannula in the atrium and inferior vena cava. The patient was placed on cardiopulmonary bypass, cooled to 32 degrees centigrade. A cross clamp was placed just proximal to the aortic cannula and the patient was given cardioplegic solution through the aortic root. The patient was given a cold induction and cold maintenance. The patient was given cold intermittent cardioplegic solution throughout the procedure through the root, through the grafts or a combination of both. The first vessel to be grafted was the obtuse marginal. It was grafted end-to-side utilizing a running 7-0 Prolene suture. Graft was then measured to the second diagonal in a [id number] anastomosis fashioned utilizing running 7-0 Prolene suture. Grafts were measured back to the aorta and a proximal anastomosis fashioned utilizing running 6-0 Prolene suture. Next, left internal thoracic was brought through the hole in pericardium, sutured left anterior descending end-to-side utilizing a running 8-0 Prolene suture. Pedicle was attached to the epicardium with 6-0 Prolene suture. All maneuvers to remove trapped air were performed. The patient was given warm cardioplegic reperfusion and controlled reperfusion. The patient OPERATIVE REPORT [id number] ADAN KERR rewarmed to 37 degrees centigrade. Two atrial and 2 ventricular pacing wires were placed in the heart brought out through the epigastric area. The patient was weaned cardiopulmonary bypass. After being stable off bypass, he was given calculated dose of protamine to reverse the heparin. Hemostasis was achieved. A #40 right angle and #36 chest tubes were brought in through the epigastric area and placed in the mediastinum. The chest was again irrigated. Instrument count and sponge count were correct times 2. A separate left pleural tube was connected to underwater seal suction. Chest was closed in layers utilizing #7 wire on the sternum, #2 Vicryl on the linea alba and pectoralis fascia. Subcutaneous tissue was approximated with 3-0 Vicryl and skin approximated with 3-0 subcuticular Vicryl. Sterile dressings were applied. The patient tolerated the procedure well and was transferred to the cardiovascular ICU in satisfactory condition. TRANSINT:[id number] Voice Confirmation ID: [id number] DOCUMENT ID: [id number] PARIHS CAMPOVERDE MD at 1208 CC: [id number] DICTATION DATE: 03/19/17 141 SUPERVISOR BURLING AND JOINING: 03/20/17 0034 ADM IN [facility] [address] [id number]
--- NOTE | 2017-03-20 12:30 | NUR ---
DR. PETE AT [facility]. NO CURRENT NEEDS.
--- NOTE | 2017-03-20 18:30 | NUR ---
ORAL CARE PERFORMED WITH PERIDEX ORDERED
--- NOTE | 2017-03-20 19:15 | NUR ---
REPORT RECVD. CARE ASSUMED. INITIAL ASSMNT COMPLETED. SEE FLOWSHEET FOR ALL FINDINGS. AWAKE AND AOX4. RESP SHALLOW, UNLABORED. ON O2 AT 2LPM NC. LUNGS CTA, DIM IN BASES. ST ON THE MONITOR. PULSES PALP. RIGHT RADIAL A-LINE ZEROED AND BALANCED. GOOD WAVE FORM SEEN. SYS B/P WITHIN PARAMETERS. DOPAMINE AND NTG GTTS IN USE. RIGHT IJ SWAN LOCKED, PATEDNT AND SECURED. CARDIAC MONITORING PER VIGILENCE WITHIN PARAMETERS. TEMP PM VVI 60, SENSING ONLY. STERNAL DRESSINGS CDI. CHEST TUBES X3 PATENT AND SECURED TO 20 SM SX. MINIMAL BLOODY DRNG SEEN. ABD SOFT. BSA X4. F/C PATENT TO CRITICORE WITH BOBO UOP. AFEBRILE. TEDS/SCDS IN USE. RIGHT LEG DRESSING CDI. SUPERINTENDENT DRILLING MORPHINE IN USE FOR PAIN CONTROL. REPOSITIONED FOR COMFORT. HOB UP. 1:[address] CONT CURRENT POC.
--- NOTE | 2017-03-20 21:00 | NUR ---
HS MEDS GIVEN. TURNED AND REPOSITIONED. VSS. NO DISTRESS. HOB UP. SALON PROFESSIONAL IN REACH. PO FLUIDS IN REACH. DENIES FURTHER NEEDS. NO VISITORS. CONT CURRENT POC.
--- NOTE | 2017-03-20 23:15 | NUR ---
REASSESSMENT COMPLETED. SEE FLOWSHEET FOR ALL FINDINGS. RESTFUL.AOX4. RESP SHALLOW, UNLABORED. ON O2 AT 2LPM NC. LUNGS CTA, DIM IN BASES. ST ON THE MONITOR. PULSES PALP. RIGHT RADIAL A-LINE INTACT. GOOD WAVE FORM SEEN. SYS B/P WITHIN PARAMETERS. RIGHT IJ SWAN LOCKED, PATEDNT AND SECURED. CARDIAC MONITORING PER VIGILENCE WITHIN PARAMETERS. TEMP PM VVI 60, SENSING ONLY. STERNAL DRESSINGS CDI. CHEST TUBES X3 PATENT AND SECURED TO 20 SM SX. MINIMAL BLOODY DRNG SEEN. ABD SOFT. BSA X4. F/C PATENT TO CRITICORE WITH BOBO UOP. AFEBRILE. TEDS/SCDS IN USE. RIGHT LEG DRESSING CDI. POOL PLAYER MORPHINE IN USE FOR PAIN CONTROL. REPOSITIONED FOR COMFORT. HOB UP. 1:[address] CONT CURRENT POC.
[2017-03-21] VITALS (57 sets, daily range): BP systolic 94–141; BP diastolic 43–71
--- NOTE | 2017-03-21 01:15 | NUR ---
TURNED AND REPOSITIONED. VSS. NO SIG CHANGES OR DISTRESS. INSIGHTS ANALYST MORPHINE PROVIDING PAIN CONTROL. HOB UP. CONT 1:1 NURSING CARE.
--- NOTE | 2017-03-21 03:15 | NUR ---
REASSESSMENT COMPLETED. SEE FLOWSHEET FOR ALL FINDINGS. RESTFUL.AOX4. RESP SHALLOW, UNLABORED. ON O2 AT 2LPM NC. LUNGS CTA, DIM IN BASES. ST ON THE MONITOR. PULSES PALP. RIGHT RADIAL A-LINE INTACT. GOOD WAVE FORM SEEN. SYS B/P WITHIN PARAMETERS. RIGHT IJ SWAN LOCKED, PATEDNT AND SECURED. CARDIAC MONITORING PER VIGILENCE WITHIN PARAMETERS. TEMP PM VVI 60, SENSING ONLY. STERNAL DRESSINGS CDI. CHEST TUBES X3 PATENT AND SECURED TO 20 SM SX. MINIMAL BLOODY DRNG SEEN. ABD SOFT. BSA X4. F/C PATENT TO CRITICORE WITH BOBO UOP. AFEBRILE. TEDS/SCDS IN USE. RIGHT LEG DRESSING CDI. UPHOLSTERY SEWER MORPHINE IN USE FOR PAIN CONTROL. REPOSITIONED FOR COMFORT. HOB UP. 1:[address] CONT CURRENT POC.
--- NOTE | 2017-03-21 05:04 | NUR ---
RIGHT LEG DRESSING CHANGED PER ORDERS. TURNED AND REPOSITIONED. VSS. HOB UP. CONT POC.
[2017-03-21 06:25] LABS: HEMOGLOBIN 8.2 g/dL (13.5-17.5); MCH 29.7 pg (26.0-34.0); MCHC 32.8 g/dL (31.0-37.0); MCV 90.6 fL (80.0-100.0); MEAN PLATELET VOLUME 9.9 fL (7.4-10.4); RBC 2.76 10x6/uL (4.20-6.10); RDW 13.4 % (11.5-14.5); WBC 10.5 10x3/uL (4.8-10.8)
[2017-03-21 06:31] LABS: PLATELET COUNT 98 10x3/uL (130-400)
[2017-03-21 06:48] LABS: ALBUMIN 2.9 g/dL (3.4-5.0); ALKALINE PHOSPHATASE 38 U/L (46-116); ALT (SGPT) 23 U/L (10-68); BILIRUBIN - TOTAL 0.86 mg/dL (0.2-1.3); CALC OSMOLALITY 284 mosm/kg (275-300); CALCIUM 7.7 mg/dL (8.5-10.1); CARBON DIOXIDE 29.6 mmol/L (21.0-32.0); CHLORIDE - SERUM 104 mmol/L (98-107); CREATININE - SERUM 0.9 mg/dL (0.6-1.3); GLUCOSE 133 mg/dL (74-106); POTASSIUM - SERUM 3.9 mmol/L (3.5-5.1); PROTEIN - SERUM 5.2 g/dL (6.4-8.2); SODIUM 140 mmol/L (136-145); UREA NITROGEN 25 mg/dL (7-18); eGFR NON AFRICAN AMERICAN 87 mL/min (90-120)
[2017-03-21 06:49] LABS: PLATELET ESTIMATE DECREASED
--- NOTE | 2017-03-21 06:51 | NUR ---
K+ LEVEL TREATED PER SLIDING SCALE.
--- NOTE | 2017-03-21 09:10 | NUR ---
FAMILY AT BEDSIDE.
--- NOTE | 2017-03-21 12:20 | NUR ---
DR. PETE AT BEDSIDE SPEAKING WITH PT AND FAMILY. PREPARING TO DC LINES.
--- NOTE | 2017-03-21 13:30 | NUR ---
ALL LINES DC'D PER ORDER. MANUAL PRESSURE APPLIED TIMES 5-10 MINUTES PER SITE. MANUAL PRESSURE APPLIED TIMES 10 MINUTES TO RIGHT LEG INCISION SITE PER VERBAL INSTRUCTION OF DR. PETE. ALL DRESSINGS CHANGED. BED BATH GIVEN.
--- NOTE | 2017-03-21 15:00 | NUR ---
UP TO CHAIR PER P.T.
--- NOTE | 2017-03-21 17:20 | NUR ---
ASSISTED PT TO BATHROOM AND BACK TO BED.
--- NOTE | 2017-03-21 18:14 | NUR ---
ORAL CARE PERFORMED WITH PERIDEX ORDERED
--- NOTE | 2017-03-21 19:30 | NUR ---
REPORT RECVD. CARE ASSUMED. INITIAL ASSMNT COMPLETED. SEE FLOWSHEET FOR ALL FINDINGS. AWAKE AND AOX4. RESP SHALLOW, UNLABORED. ON O2 AT 2LPM NC. LUNGS CTA, DIM IN BASES. SR ON THE MONITOR. PULSES PALP. SYS B/P WITHIN PARAMETERS. TEMP PM VVI 60, SENSING ONLY. STERNAL DRESSINGS CDI. ABD SOFT. BSA X4. VOIDING NO DIFF. BLADDER NON PALP. AFEBRILE. TEDS/SCDS IN USE. RIGHT LEG DRESSING CDI. CARRIAGE DOGGER MORPHINE IN USE FOR PAIN CONTROL. HOB UP. C/L AND CARRIAGE DOGGER IN REACH. CONT CURRENT POC.
--- NOTE | 2017-03-21 20:40 | NUR ---
UP TO BR TO VOID WITH MINIMAL ASSIST.
--- NOTE | 2017-03-21 23:30 | NUR ---
REASSESSMENT COMPLETED. SEE FLOWSHEET FOR ALL FINDINGS. RESTFUL.AOX4. RESP SHALLOW, UNLABORED. ON O2 AT 1LPM NC. LUNGS CTA, DIM IN BASES. ST ON THE MONITOR. PULSES PALP. SYS B/P WITHIN PARAMETERS. TEMP PM VVI 60, SENSING ONLY. STERNAL DRESSINGS CDI. ABD SOFT. BSA X4. VOIDING NO DIFF. BLADDER NON PALP. AFEBRILE. TEDS/SCDS IN USE. RIGHT LEG DRESSING CDI. ON SITE MANAGER MORPHINE IN USE FOR PAIN CONTROL. REPOSITIONS SELF FOR COMFORT. HOB UP. C/L AND ON SITE MANAGER IN REACH. CONT CURRENT POC.
[2017-03-22] VITALS (23 sets, daily range): BP systolic 90–133; BP diastolic 52–73
--- NOTE | 2017-03-22 01:30 | NUR ---
RESTING WITH NO DISTRESS. EYES CLOSED. VSS. SR ON THE MONITOR. BICYCLE COURIER IN REACH. HOB UP. BED ALARM ON. HOB UP. C/L IN REACH. CONT CURRENT POC.
--- NOTE | 2017-03-22 03:30 | NUR ---
REASSESSMENT COMPLETED. SEE FLOWSHEET FOR ALL FINDINGS. RESTFUL.AOX4. RESP SHALLOW, UNLABORED. ON O2 AT 1LPM NC. LUNGS CTA, DIM IN BASES. ST ON THE MONITOR. PULSES PALP. SYS B/P WITHIN PARAMETERS. TEMP PM VVI 60, SENSING ONLY. STERNAL DRESSINGS CDI. ABD SOFT. BSA X4. VOIDING NO DIFF. BLADDER NON PALP. UP WITH MINIMAL ASSIST TO BR. AFEBRILE. TEDS/SCDS IN USE. RIGHT LEG DRESSING CDI. TOBACCO DRUMMER MORPHINE IN USE FOR PAIN CONTROL. REPOSITIONS SELF FOR COMFORT. HOB UP. C/L AND TOBACCO DRUMMER IN REACH. CONT CURRENT POC.
--- NOTE | 2017-03-22 05:00 | NUR ---
UP IN CHAIR AT BEDSIDE AFTER XRAY. NO DISTRESS. SR WITH OCC PAC NOTED. TEMP PM INTACT AT VVI. SENSING. COMEDIAN MORPHINE PROVIDING PAIN CONTROL. C/L AND COMEDIAN IN REACH. DENIES NEEDS. CONT POC.
[2017-03-22 06:22] LABS: HEMATOCRIT 25.9 % (42.0-54.0); HEMOGLOBIN 8.6 g/dL (13.5-17.5); MCH 30.2 pg (26.0-34.0); MCHC 33.2 g/dL (31.0-37.0); MCV 90.9 fL (80.0-100.0); MEAN PLATELET VOLUME 9.8 fL (7.4-10.4); RBC 2.85 10x6/uL (4.20-6.10); RDW 13.1 % (11.5-14.5); WBC 11.4 10x3/uL (4.8-10.8)
[2017-03-22 06:58] LABS: ALBUMIN 2.6 g/dL (3.4-5.0); ALKALINE PHOSPHATASE 80 U/L (46-116); BILIRUBIN - TOTAL 0.82 mg/dL (0.2-1.3); CALC OSMOLALITY 281 mosm/kg (275-300); CALCIUM 7.9 mg/dL (8.5-10.1); CARBON DIOXIDE 28.9 mmol/L (21.0-32.0); CHLORIDE - SERUM 100 mmol/L (98-107); GLUCOSE 169 mg/dL (74-106); POTASSIUM - SERUM 4.2 mmol/L (3.5-5.1); PROTEIN - SERUM 5.5 g/dL (6.4-8.2); SODIUM 136 mmol/L (136-145); UREA NITROGEN 29 mg/dL (7-18); eGFR NON AFRICAN AMERICAN 77 mL/min (90-120)
[2017-03-22 07:04] LABS: ALT (SGPT) 37 U/L (10-68)
--- NOTE | 2017-03-22 07:15 | NUR ---
REPORT RECIEVED FROM STONE UNLOADER NURSE. PT RESTING IN RECLINER QUIETLY. VSS ON CM. AAO X4. TPM VVI 60- SR. RESP EVEN AND UNLABORED ON RA. MIDSTERNAL, SUBSTERNAL, AND R- LEG DRESSINGS C/D/I. INSTANT POTATO PROCESSOR IN REACH ALONG WITH CALL LIGHT. DENIES NEEDS AT THIS TIME. STATES PAIN IS WELL CONTROLLED WITH INSTANT POTATO PROCESSOR. WILL CONT TO ASSESS FOR CHANGES THROUGHOUT SHIFT. REFER TO FLOWSHEET FOR FULL ASSESSMENT.
--- NOTE | 2017-03-22 10:00 | NUR ---
OFFERED TO ASSIST PT WITH BED BATH. REFUSED. STATED HE WOULD WAIT UNTIL WAS AVAILABLE. FULL LINEN CHANGE PROVDED.
--- NOTE | 2017-03-22 10:06 | NUR ---
* Is the patient Alert and Oriented? Yes 0 * How many steps to enter\exit or inside your home? 0 0 * PCP Dr. Muñoz 0 * Pharmacy [facility] 0 * Preadmission Environment Home with Family 0 * ADLs Independent 0 * List name and contact numbers for known caregivers / representatives who currently or will assist patient after discharge: Spouse - Nellie [phone] H [phone] C 0 * Additional services required to return to the preadmission environment? No 0 * Can the patient safely return to the preadmission environment? Yes 0 * Has this patient been hospitalized within the prior 30 days at any hospital? No 03/22/2017 10:06 DCP: Discharge Planning Patient Name: ADAN KERR Admission Status: Elective Accout number: [id number] Admission Date: 03-19-2017 : 1940 Admission Diagnosis: Attending: [facility] Current LOS: 3 Anticipated DC Date: 03-26-2017 Planned Disposition: Home Primary Insurance: [facility] Discharge Planning Comments: CM met with patient to assess dc plans/needs. Patient states he lives at home with his , Nellie. He reports he is independent with all ADL's & IADL's. 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 He has not had home health services in the past. At [place], he plans to return home with his . No needs identified or verbalized at this time. CM will follow. Outreach Clinician: Julieta Barajas
--- NOTE | 2017-03-22 10:11 | TEE ---
PATIENT:ADAN KERR MEDICAL RECORD: [id number] LOCATION:[address] [place] [address] AGE OF PATIENT: 76 ADMISSION DATE: 03/19/17 SEX: M REFERRING PHYSICIAN: INTERPRETING PHYSICIAN: ZAK RAHMAN MD TRANSESOPHAGEAL ECHOCARDIOGRAM LOS CHARGE Y INDICATIONS: CABG PREMEDICATIONS: PATIENT'S RESPONSE PROCEDURE DOPPLER MEASUREMENTS: LVIT LA PA RA LVOT RVOT Asc. Ao AV Gradient Peak AV Mean AV Area MV Gradient Peak MV Mean MV Area INTERPRETATION: Doppler: 2-D: COLOR FLOW DOPPLER NORMAL SALINE STUDY: MISCELLANOUS: DIAGNOSIS: PLAN: Protocol Manager:2 Dr. Bingham Clinical Operations Specialist: 1 CHEVYWANDA AMEE COMMENTS: DATE OF SERVICE: 03/19/2017 Transesophageal Echocardiogram INDICATION: Evaluation of valvular structures during bypass surgery. FINDINGS: 1. Left ventricular chamber size is within normal limits. Left ventricular systolic function is normal. Overall ejection fraction estimated at 55% to 60%. TRANSESOPHAGEAL ECHOCARDIOGRAM REPORT [id number] ADAN KERR 2. Left atrium, right atrium, and right ventricle chamber sizes are within normal limits. 3. Valvular structures have normal structure and motion. 4. Doppler interrogation only reveals trace mitral regurgitation. No other valvular insufficiency or stenosis. 5. No evidence of pericardial effusion or left ventricular thrombus. TRANSINT:[id number] Voice Confirmation ID: [id number] DOCUMENT ID: [id number] at 1011 CC: [id number] DICTATION DATE: 03/19/17 1724 WHEEL ROLLER: 03/20/17 1553 ADM IN [id number] [place] [address]
--- NOTE | 2017-03-22 10:14 | NUR ---
ORAL CARE DONE WITH PERIDEX.
--- NOTE | 2017-03-22 10:31 | NUR ---
Nutrition follow-up: Diet advanced to full liquids; Glucerna TID Wt: 232# -> up from admit; diuresis started Labs reviewed RDN following.
--- NOTE | 2017-03-22 11:30 | NUR ---
WALKED 250 FT WITH PT. ASSISTED BACK TO RECLINER. TOLERATED WELL.
--- NOTE | 2017-03-22 12:00 | NUR ---
AT BEDSIDE WITH FAMILY.
--- NOTE | 2017-03-22 14:30 | NUR ---
WALKED 250FT WITH PT. TOLERATED WELL. NO ISSUES NOTED WHEN AMBULATING.
--- NOTE | 2017-03-22 15:30 | NUR ---
AT BEDSIDE ASSISTING PT WITH BATH.
--- NOTE | 2017-03-22 17:00 | NUR ---
ASSISTED BACK TO BED FROM BATHROOM. VOIDED 200CC. HAD SMALL BM. CONNECTED BACK TO . CALL LIGHT PLACED IN REACH.
--- NOTE | 2017-03-22 18:59 | NUR ---
ORAL CARE PERFORMED WITH PERIDEX ORDERED
--- NOTE | 2017-03-22 19:20 | NUR ---
IV saline locked per order.
--- NOTE | 2017-03-22 19:20 | NUR ---
Assessment complete. See flowsheet. Pt awake upon entrance into room with VSS. Pt helped up to bathroom per request and ambulates well with minimal assistance. Pt back to bed after void and flatulence, no BM and helped to position for comfort with minimal assistance. Pt alert, oriented x4 and following all commands and conversation with no neuro deficits noted. Respirations even and unlabored. O2 RA. Lung sounds CTA with diminished lower lobes. Pt cough strong and productive with thick, barker sputum produced and retrieved with provided yanker. HR ST with S1S2 auscultated. All peripheral pulses +2 with capillary refill <3 seconds. TPM wires secure under substernal dressing with TPM set VVI Rate 60 VMA 10 and sensing currently. HR 105bpm currently. Midsternal incision site dressing CDI; no s/s infection. Right upper leg harvest incision site dressings CDI and secure with no drainage noted. Left DLSC CVL site CDI with plasmalyte infusing @ 30cc/hr. Abdomen firm and distended; tympanic to percussion with BS present to all quadrants. SCDs/ANGIE hoses secure. Pt provided with fresh ice water per request. Call light, bedside table and yanker within pt reach. CPOC.
--- NOTE | 2017-03-22 21:20 | NUR ---
PM medications administered. FSBS 158mg/dL and covered per s/s with 4units Humalog. See MAR. pt denies further needs at this time. Miralax mixed in ice water per pt request. CPOC.
--- NOTE | 2017-03-22 23:20 | NUR ---
Reassessment complete. See flowsheet. Pt resting with VSS and awakens easily to verbal stimulation with no neuro changes to note from previous assessment. O2 RA. Respirations even and unlabored. Lung sounds remain CTA with diminished lower lobes. HR ST 104BPM with S1S2 auscultated. All peripheral pulses remain +2 with capillary refill <3 seconds. CVL site CDI saline locked. Abdomen remains firm and distended with BS present to all quadrants. Pt continues to self-position for comfort. All incision site dressings remain unchanged. TPM remains secure under substernal dressing with no setting changes to note. No other changes to note from previous assessment. Pt denies further needs at this time. Call light and bedside table remain within reach. CPOC.
[2017-03-23] VITALS (20 sets, daily range): BP systolic 96–131; BP diastolic 42–74
--- NOTE | 2017-03-23 00:56 | NUR ---
Pt up to bathroom to void 400cc concentrated, yellow urine and to chair to rest with VSS. Call light, bedside table and yanker placed within pt reach.
--- NOTE | 2017-03-23 01:20 | NUR ---
Pt resting in chair with VSS and allowed to continue undisturbed.
--- NOTE | 2017-03-23 03:20 | NUR ---
Reassessment complete. See flowsheet. Pt resting with VSS and awakens easily to verbal stimulation with no neuro changes to note from previous assessment. O2 RA. Respirations even and unlabored. Lung sounds remain CTA with diminished lower lobes. HR ST 102BPM with S1S2 auscultated. All peripheral pulses remain +2 with capillary refill <3 seconds. CVL site CDI saline locked. Abdomen remains firm and distended with BS present to all quadrants. Pt continues to self-position for comfort. All incision site dressings remain unchanged. TPM remains secure under substernal dressing with no setting changes to note. No other changes to note from previous assessment. Pt denies further needs at this time. Call light and bedside table remain within reach. CPOC.
--- NOTE | 2017-03-23 04:52 | NUR ---
Pt out of bedside chair to wheelchair on telemetry for AM PA/LAT.
--- NOTE | 2017-03-23 05:08 | NUR ---
Back to room from RAD and helped to bed with minimal assistance. VSS. Call light, bedside table, and yanker within pt reach. Further needs denied. CPOC.
--- NOTE | 2017-03-23 05:20 | NUR ---
Pt resting with VSS. No s/s pain or distress. Call light, bedside table and yanker remain within pt reach. CPOC.
[2017-03-23 06:10] LABS: HEMATOCRIT 25.7 % (42.0-54.0); HEMOGLOBIN 8.6 g/dL (13.5-17.5); MCH 30.1 pg (26.0-34.0); MCHC 33.5 g/dL (31.0-37.0); MCV 89.9 fL (80.0-100.0); MEAN PLATELET VOLUME 9.7 fL (7.4-10.4); RBC 2.86 10x6/uL (4.20-6.10); RDW 13.1 % (11.5-14.5); WBC 9.3 10x3/uL (4.8-10.8)
[2017-03-23 06:33] LABS: ALBUMIN 2.5 g/dL (3.4-5.0); ALKALINE PHOSPHATASE 99 U/L (46-116); BILIRUBIN - TOTAL 1.06 mg/dL (0.2-1.3); CALC OSMOLALITY 279 mosm/kg (275-300); CALCIUM 7.9 mg/dL (8.5-10.1); CARBON DIOXIDE 30.6 mmol/L (21.0-32.0); CHLORIDE - SERUM 99 mmol/L (98-107); GLUCOSE 138 mg/dL (74-106); POTASSIUM - SERUM 3.8 mmol/L (3.5-5.1); PROTEIN - SERUM 5.6 g/dL (6.4-8.2); SODIUM 136 mmol/L (136-145); UREA NITROGEN 28 mg/dL (7-18); eGFR NON AFRICAN AMERICAN 77 mL/min (90-120)
[2017-03-23 06:41] LABS: ALT (SGPT) 47 U/L (10-68)
--- NOTE | 2017-03-23 07:00 | NUR ---
PT REPORT REC'D, PT CARE ASSUMED, PT AAOX4, NO C/O PAIN, VSS, ROOM AIR. MIDSTERNAL INCISION, DRESSING CDI, SUBSTERNAL TPM WIRES SECURED TO CHEST, DRESSING CDI. RIGHT LEG HARVEST SITES, DRESSINGS CDI. TPM VVI-60, SENSING ON CM. LEFT SUBCLAVIAN CVL WITH POTASSIUM MAYTE INFUSING, DRESSING CDI. SHIFT ASSESSMENT COMPLETED, SEE FLOW SHEET. ROOM FREE OF CLUTTER, CALL LIGHT IN REACH. WILL CONTINUE TO MONITOR PT.
--- NOTE | 2017-03-23 07:15 | NUR ---
ASSISTED PT TO BATHROOM, PT VOIDED. TRANSFERRED PT TO CHAIR, VSS, WILL CONTINUE TO MONITOR PT.
--- NOTE | 2017-03-23 07:52 | NUR ---
DR. PETE AT THE BEDSIDE, ALL QUESTIONS ANSSWERED, WILL CONTINUE TO MONITOR PT.
--- NOTE | 2017-03-23 09:00 | NUR ---
PT FAMILY AT THE BEDSIDE, ALL QUESTIONS ANSWERED, VSS, WILL CONTINUE TO MONITOR PT.
--- NOTE | 2017-03-23 11:00 | NUR ---
PT RESTING IN CHAIR WITH EYES CLOSED, NO C/O PAIN, VSS. REASSESSMENT COMPELTED, SEE FLOW SHEET. ROOM FREE OF CLUTTER, CALL LIGHT IN REACH, WILL CONTINUE TO MONITOR PT.
--- NOTE | 2017-03-23 12:28 | NUR ---
PT FAMILY AT THE BEDSIDE, ALL QUESTIONS ANSWERED, VSS, WILL CONTINUE TO MONITOR PT.
--- NOTE | 2017-03-23 14:00 | NUR ---
COMPLETE BATH, COMPLETE LINEN CHANGE, CHANGED RIGHT LEG HARVEST SITE DRESSINGS, BETADINE APPLIED, 4X4'S AND SPONDAGE APPLIED. SUBSTERNAL TPM DRESSING CHANGED, BETADINE APPLIED, BIOPATCH X2, 4X4'S AND TEGADERM APPLIED, WILL CONTINUE TO MONITOR PT.
--- NOTE | 2017-03-23 14:30 | NUR ---
PHYSICAL THERAPY IN WITH PT, PT AMBULATED APPROX 270 FEET, TOLERATED WELL, WILL CONTINUE TO MONITOR PT.
--- NOTE | 2017-03-23 15:00 | NUR ---
PT SITTING UP IN CHAIR, NO C/O PAIN, VSS, REASSESSMENT COMPLETED, SEE FLOW SHEET. ROOM FREE OF CLUTTER, CALL LIGHT IN REACH, WILL CONTINUE TO MONITOR PT.
--- NOTE | 2017-03-23 15:20 | NUR ---
PT FAMILY AT THE BEDSIDE, ALL QUESTIONS ANSWERED, VSS, WILL CONTINUE TO MONITOR PT.
--- NOTE | 2017-03-23 17:46 | NUR ---
ORAL CARE DONE THIS AM AT 0900 WITH PERIDEX
--- NOTE | 2017-03-23 19:30 | NUR ---
Assessment complete. See flowsheet. Pt awake upon entrance into room and receiving UDTX. No neuro deficits noted. Pupils size 3 bilaterally ERRLA. Pt moving all extremities with 5/5 strength. No edema noted. Pt self-positioning. O2 RA. Respirations even and unlabored. Lung sounds clear to all taylor with diminished lower lobes. HR ST 104BPM with S1S2 auscultated. All peripheral pulses +2 with capillary refill <3 seconds. Left DLSC CVL site CDI; saline locked with no s/s infection. Midsternal dressing CDI. Substernal dressings secure with TPM wires visualized; CDI and secure. TPM set VVI Rate 60 VMA 10 sensing currently. Right upper leg harvest incision site dressings CDI. Mesh wrap around right leg. Abdomen distended and tympanic with BS present to all quadrants. SCDs and ANGIE hoses secure. Pt up to bathroom with linen change completed. Pt back to bed and self-positioned with call light and bedside table within reach. Yanker provided. Fresh ice provided per request. Pt denies pain at this time. CPOC.
--- NOTE | 2017-03-23 21:30 | NUR ---
Pt awakened for PM medication administration. See MAR. FSBS 137mg/dL. Pt denies further needs at this time. VSS. CPOC.
--- NOTE | 2017-03-23 23:30 | NUR ---
Reassessment complete. See flowsheet. Pt up to bedside toilet for void and diarrhea. Partial linen change completed from harvest incision dressings. Right leg dressings removed, sites cleansed and new dressings applied. Pt self-positioning for comfort. NO other changes to note. Pt denies pain or further needs at this time. Call light, bedside table and yanker remain within reach. CPOC.
[2017-03-24] VITALS (24 sets, daily range): BP systolic 97–143; BP diastolic 42–77
--- NOTE | 2017-03-24 01:30 | NUR ---
Pt resting with VSS. No s/s pain or distress and allowed to continue resting undisturbed. Call light and bedside table remain within pt reach. CPOC.
--- NOTE | 2017-03-24 03:30 | NUR ---
Reassessment complete. See flowsheet. Pt awakens easily with no neuro deficits noted. O2 RA. Lung sounds CTA. HR ST 103 BPM. S1S2 auscultated. All peripheral pulses remain +2 with capillary refill <3 seconds. CVL site CDI; saline locked. Abdomen remains slightly distended with BS present to all quadrants. All incision site dressings remain CDI. TPM wires secure under CDI substernal dressing. Pacemaker battery change completed. Pt helped OOB for bathroom and to chair afterwards. Call light and bedside table placed within pt reach. VSS.
--- NOTE | 2017-03-24 04:45 | NUR ---
Pt to radiology and back for AM PA/LAT. Pt tolerated well self-ambulating. Pt back to bedside chair to rest. VSS. CPOC.
[2017-03-24 05:56] LABS: HEMATOCRIT 23.7 % (42.0-54.0); MCH 30.2 pg (26.0-34.0); MCHC 33.8 g/dL (31.0-37.0); MCV 89.4 fL (80.0-100.0); MEAN PLATELET VOLUME 9.2 fL (7.4-10.4); RBC 2.65 10x6/uL (4.20-6.10); RDW 13.4 % (11.5-14.5); WBC 7.3 10x3/uL (4.8-10.8)
[2017-03-24 06:24] LABS: ALBUMIN 2.2 g/dL (3.4-5.0); ANION GAP 8.9 mmol/L (8-16); BILIRUBIN - TOTAL 1.3 mg/dL (0.2-1.3); CALCIUM 7.5 mg/dL (8.5-10.1); CARBON DIOXIDE 30.2 mmol/L (21.0-32.0); CREATININE - SERUM 1.1 mg/dL (0.6-1.3); POTASSIUM - SERUM 4.1 mmol/L (3.5-5.1); PROTEIN - SERUM 5.2 g/dL (6.4-8.2)
--- NOTE | 2017-03-24 06:52 | NUR ---
Pt helped from chair to bathroom for BM. Pt with BM and urine 400cc.
--- NOTE | 2017-03-24 07:00 | NUR ---
PT REPORT REC'D, PT CARE ASSUMED. PT AAOX4 SITTING UP IN BED, NO C/O PAIN, VSS, ROOM AIR. LEFT SUBCLAVIAN CVL S/L'ED, DRESSING CDI. MIDSTERNAL INCISION, DRESSING CDI. SUBSTERNAL TPM WIRES SECURED TO CHEST, DRESSING CDI. TPM VVI-60, SENSING. RIGHT LEG HARVEST SITES, DRESSINGS CDI. SCD'S, ANGIE'S. SHIFT ASSESSMENT COMPELTED, SEE FLOW SHEET. ROOM FREE OF CLUTTER, CALL LIGHT IN REACH, WILL CONTINUE TO MONITOR PT.
--- NOTE | 2017-03-24 07:10 | NUR ---
TRANSFERRED PT FROM BED TO CHAIR, PT TOLERATED WELL. WILL CONTINUE TO MONITOR PT.
--- NOTE | 2017-03-24 07:40 | NUR ---
DR. PETE AT THE BEDSIDE, PT SITTING UP IN CHAIR EATING BREAKFAST, VSS, ALL QUESTIONS ANSWERED, WILL CONTINUE TO MONITOR PT.
--- NOTE | 2017-03-24 08:52 | NUR ---
PHYSICAL THERAPY IN WITH PT, PT AMBULATED ONE LAP AROUND UNIT, PT TOLERATED WELL, WILL CONTINUE TO MONITOR PT.
--- NOTE | 2017-03-24 09:29 | NUR ---
NUTRITION MONITORING & EVAL CHART REVIEWED. FAMILY AT BEDSIDE. NURSING REPORTS PT WITH IMPROVING PO INTAKE. BREAKFAST PROVIDED BY FAMILY. RD FOLLOWING
--- NOTE | 2017-03-24 09:39 | NUR ---
PT FAMILY AT THE BEDSIDE, ALL QUESTIONS ANSWERED, VSS, WILL CONTINUE TO MONITOR PT.
[2017-03-24] MEDS ORDERED: LOPRESSOR25 MG PO (10:55)
[2017-03-24] MEDS ORDERED: HEMOCYTE PLUS C1 CAP PO (10:55)
[2017-03-24] MEDS ORDERED: LASIX40 MG PO (10:56)
[2017-03-24] MEDS ORDERED: HYDROCODONE-APA1 TAB PO (10:57)
[2017-03-24] MEDS ORDERED: K-DUR20 MEQ PO (10:57)
--- NOTE | 2017-03-24 11:00 | NUR ---
PT SITTING UP IN CHAIR, NO C/O PAIN, VSS. REASSESSMENT COMPLETED, SEE FLOW SHEET. ROOM FREE OF CLUTTER, CALL LIGHT IN REACH, WILL CONTINUE TO MONITOR PT.
--- NOTE | 2017-03-24 12:05 | NUR ---
PT FAMILY AT THE BEDSIDE, ALL QUESTIONS ANSWERED, VSS, WILL CONTINUE TO MONITOR PT.
--- NOTE | 2017-03-24 14:40 | NUR ---
PT BEGAN VOMITING YELLOW COLORED COMIT, NOTIFIED ALEJANDRO RODRIGUEZ TO BE GIVEN. WILL CONTINUE TO MONITOR PT.
--- NOTE | 2017-03-24 14:50 | NUR ---
KENNEDY CHING RN DC'ED CVL PREVIOUSLY, RESITED IV TO LEFT A/C, FLUSHES, NO SIGNS OF INFILTRATION, WILL CONTINUE TO MONITOR PT.
--- NOTE | 2017-03-24 15:00 | NUR ---
PT SITTING UP IN BED, ALEJANDRO GIVEN, PT STATES "THAT HELPED.", VSS, PTS AT THE BEDSIDE, REASSESSMENT COMPLETED, SEE FLOW SHEET. ROOM FREE OF CLUTTER, CALL LIGHT IN REACH, WILL CONTINUE TO MONITOR PT.
--- NOTE | 2017-03-24 15:09 | NUR ---
03/24/2017 15:09 DCP: Discharge Planning Patient Name: ADAN KERR Encounter No: [id number] : 1940 Primary Insurance: [facility] Anticipated DC Date: 03-26-2017 Planned Disposition: Home DCP follow-up note: DC order rec'd. Patient and family in agreement with discharge plan. No changes to plan. Julieta Barajas
--- NOTE | 2017-03-24 19:05 | NUR ---
ORAL CARE DONE
--- NOTE | 2017-03-24 19:20 | NUR ---
PT AOX4, DENIES PAIN AT THIS TIME. LUNG SOUNDS CLEAR. S1S2 HEARD, PERIPHERAL PULSES PRESENT. BOWEL SOUNDS PRESENT. STEADY GAIT WHILE AMBULATING. RT LEG HARVEST SITES WITH DSGS CDI. PARTIAL LINEN CHANGE COMPLETE. DENIES NEEDS AT THIS TIME. CALL LIGHT AND BEDSIDE TABLE WITHIN PT REACH. CPOC.
--- NOTE | 2017-03-24 20:35 | NUR ---
HS MEDS GIVEN WITH SIPS OF WATER. PT REPOSITIONED IN BED FOR COMFORT. VSS, NO C/O PAIN OR DISCOMFORT AT THIS TIME. SINUS TACH ON MONITOR- 103. NON LABORED RESPIRATIONS. DENIES FURTHER NEEDS AT THIS TIME. CALL LIGHT AND BEDSIDE TABLE WITHIN PT REACH. CPOC.
--- NOTE | 2017-03-24 23:20 | NUR ---
PT RESTING QUIETLY WITH VSS. NO CHANGES AT THIS TIME. PT REPOSITIONS SELF INDEPENDENTLY. SINUS TACH ON MONITOR- 100. NON LABORED RESPIRATIONS. NO NAUSEA AT THIS TIME, BOWEL SOUNDS PRESENT IN ALL QUADS. DENIES PAIN. DENIES FURTHER NEEDS AT THIS TIME. CALL LIGHT AND BEDSIDE TABLE WITHIN PT REACH. CPOC.
[2017-03-25] VITALS (24 sets, daily range): BP systolic 97–131; BP diastolic 44–76
--- NOTE | 2017-03-25 03:30 | NUR ---
NO CHANGES AT THIS TIME. VSS, DENIES PAIN. NON LABORED RESPIRATIONS. COUGH/DB/IS WITH GOOD EFFORT. BENEDICT, THICK SPUTUM PRESENT. NO NAUSEA AT THIS TIME. BOWEL SOUNDS ACTIVE IN ALL QUADS. NSR ON MONITOR. DENIES NEEDS AT THIS TIME. CALL LIGHT AND BEDSIDE TABLE WITHIN PT REACH. CPOC.
--- NOTE | 2017-03-25 05:10 | NUR ---
COMPLETE LINEN CHANGE. COUGH/DB WITH GOOD EFFORT. VSS, DENIES PAIN. NO S/S OF ACUTE DISTRESS AT THIS TIME. RESTING COMFORTABLY. CALL LIGHT AND BEDSIDE TABLE WITHIN PT REACH. CPOC.
--- NOTE | 2017-03-25 07:00 | NUR ---
PT REPORT REC'D, PT CARE ASSUMED. PT RESTING IN CHAIR WITH EYES CLOSED, NO C/O PAIN, VSS, ROOM AIR. MIDSTERNAL INCISION CLEAN AND DRY, NO DRAINAGE NOTED. SUBSTERNAL PREVIOUS TPM WIRES CLEAN AND DRY, NO DRAINAGE NOTED. RIGHT LEG HARVEST SITES, DRESSINGS CDI. PT UP TO BATHROOM NEEDED. LEFT AC PIV WITH FLUIDS INFUSING, SEE FLOW SHEET. SHIFT ASSESSMENT COMPLETED, SEE FLOW SHEET. ROOM FREE OF CLUTTER, CALL LIGHT IN REACH. WILL CONTINUE TO MONTIOR PT.
--- NOTE | 2017-03-25 07:23 | NUR ---
ORAL RINSE WITH PERIDEX
--- NOTE | 2017-03-25 08:55 | NUR ---
INFORMED DR. ARMENTA OF CONSULT FOR ILEUS FROM DR. PETE, "OTONIEL".
--- NOTE | 2017-03-25 09:04 | NUR ---
PT FAMILY AT THE BEDSIDE, ALL QUESTIONS ANSWERED, VSS, WILL CONTINUE TO MONITOR PT.
--- NOTE | 2017-03-25 10:47 | NUR ---
COMPLETE BATH, LINEN CHANGE AND RIGHT LEG DRESSING CHANGE. PT TOLERATED WELL. VSS, WILL CONTINUE TO MONITOR PT.
--- NOTE | 2017-03-25 11:00 | NUR ---
PT RESTING IN CHAIR WITH EYES CLOSED, NO C/O PAIN, VSS. REASSESSMENT COMPLETED, SEE FLOW SHEET. ROOM FREE OF CLUTTER, CALL LIGHT IN REACH, WILL CONTINUE TO MONITOR PT.
[2017-03-25 13:23] LABS: ALBUMIN 2.6 g/dL (3.4-5.0); ANION GAP 10.6 mmol/L (8-16); BILIRUBIN - TOTAL 1.1 mg/dL (0.2-1.3); CALCIUM 8.2 mg/dL (8.5-10.1); CARBON DIOXIDE 29.6 mmol/L (21.0-32.0); CREATININE - SERUM 1.2 mg/dL (0.6-1.3); POTASSIUM - SERUM 4.2 mmol/L (3.5-5.1); PROTEIN - SERUM 6.2 g/dL (6.4-8.2)
[2017-03-25 13:33] LABS: HEMOGLOBIN 9.5 g/dL (13.5-17.5); MCHC 32.6 g/dL (31.0-37.0); MEAN PLATELET VOLUME 9.6 fL (7.4-10.4); RBC 3.17 10x6/uL (4.20-6.10); RDW 13.6 % (11.5-14.5)
--- NOTE | 2017-03-25 13:40 | NUR ---
DR. ARMENTA AT BEDSIDE.
[2017-03-25 13:56] LABS: HEMATOCRIT 29.1 % (42.0-54.0); MCV 91.8 fL (80.0-100.0); WBC 10.1 10x3/uL (4.8-10.8)
[2017-03-25 14:05] LABS: MAGNESIUM - SERUM 2.1 mg/dL (1.8-2.4)
[2017-03-25 14:06] LABS: PHOSPHOROUS 4.3 mg/dL (2.5-4.9)
--- NOTE | 2017-03-25 15:21 | NUR ---
Discharge cancelled 03/24 due to N/V. CM will follow.
--- NOTE | 2017-03-25 15:30 | NUR ---
REASSESSMENT COMPLETE, SEE FLOWSHEET FOR DETAILS.
--- NOTE | 2017-03-25 17:15 | NUR ---
PT DENIES NAUSEA. REQUESTS POPSICLES.
--- NOTE | 2017-03-25 19:30 | NUR ---
REPORT RECIEVED. ASSESSMENT COMPLETE PER FLOW SHEET. VSS. REFER FOR COMPLETE FINDINGS. BS ACTIVE X4 STATES HAVE LIQUID BM. HEART S1S2 HR 84 NSR. BP 100/56. DENIES PAIN OR NEEDS. WILL CONTINUE TO MONIOR
--- NOTE | 2017-03-25 21:16 | NUR ---
NO FAMILY AT THIS TIME. VSS. NO NEW FINDINGS. COMPLETE LINEN CHANGE ADM. NEEDS MET.
--- NOTE | 2017-03-25 22:14 | NUR ---
ASSISTED TO BR, STATES HAD LIQUID STOOLS WITH FEW HARD STOOLS UNABLE TO ASSESS R/T PT FLUSHING, ADVISED NOT TO FLUSH ON NEXT BR PRIVLEDGE. ASSISTED BACK TO BED. DENIES NEEDS.
--- NOTE | 2017-03-25 23:28 | NUR ---
REASSESSMENT COMPLETE PER FLOW SHEET. VSS. NO NEW CHANGES. WILL CONTINUE TO MONITOR.
[2017-03-26] VITALS (11 sets, daily range): BP systolic 97–117; BP diastolic 47–61
--- NOTE | 2017-03-26 01:52 | NUR ---
PT SLEEPING COMFORTABLY. VSS. NO NEW CHANGES.
--- NOTE | 2017-03-26 03:20 | NUR ---
REASSESSMENT COMPLETE PER FLOW HSEET. VSS. NO NEW CHANGES. WILL CONTINUE TO MONITOR
--- NOTE | 2017-03-26 07:30 | NUR ---
RECEIVED PT FOR CARE. PT RESTING IN BED WITH EYES OPEN. CALL LIGHT WITHIN REACH.
--- NOTE | 2017-03-26 07:31 | NUR ---
ORAL CARE DONE WITH PERIDEX
[2017-03-26 07:34] LABS: HEMATOCRIT 26.1 % (42.0-54.0); HEMOGLOBIN 8.6 g/dL (13.5-17.5); MCV 90.9 fL (80.0-100.0); MEAN PLATELET VOLUME 9.4 fL (7.4-10.4); RBC 2.87 10x6/uL (4.20-6.10); RDW 13.7 % (11.5-14.5); WBC 8.7 10x3/uL (4.8-10.8)
[2017-03-26 07:36] LABS: ALBUMIN 2.3 g/dL (3.4-5.0); ANION GAP 12.3 mmol/L (8-16); BILIRUBIN - TOTAL 0.92 mg/dL (0.2-1.3); CARBON DIOXIDE 27.3 mmol/L (21.0-32.0); CREATININE - SERUM 1.1 mg/dL (0.6-1.3); POTASSIUM - SERUM 4.6 mmol/L (3.5-5.1); PROTEIN - SERUM 5.5 g/dL (6.4-8.2)
--- NOTE | 2017-03-26 09:15 | NUR ---
PT SITTING UP IN CHAIR. PT'S AT BEDSIDE. UPDATED ON PT'S STATUS.
--- NOTE | 2017-03-26 09:27 | NUR ---
NUTRITION MONITORING & EVAL CHART REVIEWED. PT NOW ON FULL LIQUID DIET. WILL MONITOR DIET ADVANCEMENT, PO INTAKE. RD FOLLOWING
--- NOTE | 2017-03-26 11:00 | NUR ---
PT TAKEN DOWN BY WHEELCHAIR TO MED 3 FOR SHOWER. PT'S TO FOLLOW DOWN AND TAKEN BY DICKSON QUINN RN. NO S/S OF DISTRESS NOTED.
--- NOTE | 2017-03-26 11:14 | NUR ---
brought pt on room air to med 111-accompanied by -for requested shower-same okayed by charles iyer rn-no telemetry available tin shower-pt alert-pulse [id number]-directed no soap or toweling to chest incision area-r leg drgs removed-able soap wash same- present in shower and assisting -same refused for nurse to assist- remain in rm with shower door open for easy access-bruna
--- NOTE | 2017-03-26 11:50 | NUR ---
PT BACK FROM SHOWER. PLACED BACK ON PORTABLE TELEMETRY. PT IN SINUS RHYTHM RATE 85. O2 SAT 94% ON ROOM AIR. PT REPORTS FEELING WEAK. FSBS 102. GIVEN A POPSICLE PER HIS REQUEST. BP 118/53. SITTING UP IN CHAIR. CALL LIGHT WITHIN REACH. SET UP WITH LUNCH TRAY.
--- NOTE | 2017-03-26 12:08 | NUR ---
CALLED DR. VENTURA. CAN GIVE LOVENOX 2 HOURS AFTER EPIDURAL D/C'D.
--- NOTE | 2017-03-26 12:11 | NUR ---
DR. ARMENTA AT BEDSIDE.
--- NOTE | 2017-03-26 13:30 | NUR ---
DR. ARMENTA CALLED AND REPORTS IMPROVEMENT IN [place]UB. LEAVING DISCHARGE UP TO DR. PETE. OK FROM HIS STANDPOINT.
[2017-03-26] MEDS ORDERED: KLOR-CON M2020 MEQ PO (16:19)
[2017-03-26] MEDS ORDERED: LASIX40 MG PO (16:19)
--- NOTE | 2017-03-26 16:20 | NUR ---
DR. PETE AT BEDSIDE.
--- NOTE | 2017-03-26 17:00 | NUR ---
DISCHARGE INSTRUCTIONS DISCUSSED WITH PT AND PT'S SPOUSE. THEY VOICED UNDERSTANDING. ALL DISCHARGE PAPERWORK IN HAND. THEY REPORT THAT THEY HAVE ALL BELONGINGS. PT TAKEN BY WHEELCHAIR TO VEHICLE. NO S/S OF DISTRESS NOTED.
== END 2017-03-26 17:00 | disposition home or self-care (01) | DRG 236 ==
LOC: D.SDCHOLD 05:05 → D.CVICU 05:05 → D.SDCHOLD 07:30 → D.CVICU 12:45
PROVIDERS: ADMIT Internal Medicine Cardiovascular Disease
PROC: 021109W Bypass Coronary Artery, Two Arteries from Aorta with Autologous Venous Tissue, Open Approach (ICD-10-PCS; 2017-03-19)
PROC: 06BP0ZZ Excision of Right Saphenous Vein, Open Approach (ICD-10-PCS; 2017-03-19)
PROC: 5A1221Z Performance of Cardiac Output, Continuous (ICD-10-PCS; 2017-03-19)
PROC: 02100AC Bypass Coronary Artery, One Artery from Thoracic Artery with Autologous Arterial Tissue, Open Approach (ICD-10-PCS; principal; 2017-03-19 07:30)
DX: I25.119 Atherosclerotic heart disease of native coronary artery with unspecified angina pectoris (principal); J98.11 Atelectasis; K56.0 Paralytic ileus; E78.00 Pure hypercholesterolemia, unspecified; I10 Essential (primary) hypertension; R13.10 Dysphagia, unspecified; B35.1 Tinea unguium; L21.9 Seborrheic dermatitis, unspecified; G47.00 Insomnia, unspecified; N52.9 Male erectile dysfunction, unspecified; E11.40 Type 2 diabetes mellitus with diabetic neuropathy, unspecified; Z79.84 Long term (current) use of oral hypoglycemic drugs; N32.89 Other specified disorders of bladder

== ENCOUNTER → 2017-03-29 11:01 | Outpatient (CLI) | payer MEDICARE ==
[2017-03-20 10:37] VITALS: BMI 31.3
[~2017-03-29 11:01] MED LIST changes: +HEMOCYTE PLUS C1 CAP PO; +HYDROCODONE-APA1 TAB PO; +K-DUR20 MEQ PO; +KLOR-CON M2020 MEQ PO; +LASIX40 MG PO; +LOPRESSOR25 MG PO
[2017-03-29 12:19] LABS: ANION GAP 13.3 mmol/L (8-16); CALCIUM 8.9 mg/dL (8.5-10.1); CARBON DIOXIDE 26.3 mmol/L (21.0-32.0); CREATININE - SERUM 1.1 mg/dL (0.6-1.3); POTASSIUM - SERUM 4.6 mmol/L (3.5-5.1)
== END | disposition home or self-care (01) ==
LOC: D.LAB 11:01
PROVIDERS: Internal Medicine Cardiovascular Disease
DX: Z51.81 Encounter for therapeutic drug level monitoring (principal); Z79.899 Other long term (current) drug therapy

== ENCOUNTER → 2017-04-08 09:41 | Outpatient (CLI) | payer MEDICARE ==
[2017-03-20 10:37] VITALS: BMI 31.3
[2017-04-08 10:25] LABS: HEMOGLOBIN 12.3 g/dL (13.5-17.5); MCH 29.5 pg (26.0-34.0); MCHC 31.5 g/dL (31.0-37.0); MCV 93.5 fL (80.0-100.0); MEAN PLATELET VOLUME 8.8 fL (7.4-10.4); RBC 4.17 10x6/uL (4.20-6.10); WBC 9.1 10x3/uL (4.8-10.8)
[2017-04-08 10:29] LABS: CALCIUM 9.5 mg/dL (8.5-10.1); CARBON DIOXIDE 29.4 mmol/L (21.0-32.0); CREATININE - SERUM 1.2 mg/dL (0.6-1.3); POTASSIUM - SERUM 4.4 mmol/L (3.5-5.1)
== END | disposition home or self-care (01) ==
LOC: D.RAD 08:45
PROVIDERS: Internal Medicine Cardiovascular Disease
DX: D64.9 Anemia, unspecified (principal); J90 Pleural effusion, not elsewhere classified; Z95.1 Presence of aortocoronary bypass graft

== ENCOUNTER → 2018-01-31 14:06 | Outpatient (CLI) | payer MEDICARE ==
[2017-03-20 10:37] VITALS: BMI 31.3
== END | disposition home or self-care (01) ==
LOC: D.MRI 14:06
DX: M75.91 Shoulder lesion, unspecified, right shoulder (principal)

== ENCOUNTER 2019-05-17 07:35 | Day surgery (SDC) | payer MEDICARE ==
[2019-05-17] VITALS (11 sets, daily range): BP systolic 108–154; BP diastolic 44–77; BMI 28.6
[~2019-05-17] VITALS: Ht 180.3 cm; Wt 94.1 kg
[2019-05-17 08:17] LABS: CALC OSMOLALITY 289 mosm/kg (275-300); CARBON DIOXIDE 28.9 mmol/L (21.0-32.0); CHLORIDE - SERUM 107 mmol/L (98-107); GLUCOSE 113 mg/dL (74-106); POTASSIUM - SERUM 4.8 mmol/L (3.5-5.1); SODIUM 144 mmol/L (136-145); UREA NITROGEN 18 mg/dL (7-18); eGFR NON AFRICAN AMERICAN 77 mL/min (90-120)
[2019-05-17 08:34] LABS: HEMATOCRIT 43.8 % (42.0-54.0); HEMOGLOBIN 15.1 g/dL (13.5-17.5); MCH 30.1 pg (26.0-34.0); MCHC 34.5 g/dL (31.0-37.0); MCV 87.4 fL (80.0-100.0); RBC 5.01 10x6/uL (4.20-6.10); RDW 12.8 % (11.5-14.5); WBC 6.7 10x3/uL (4.8-10.8)
[2019-05-17] MEDS ORDERED: ZESTRIL10 MG PO (08:44)
[2019-05-17] MEDS ORDERED: BETAPACE 80 MG80 MG PO (08:44)
[2019-05-17] MEDS ORDERED: MOBIC7.5 MG PO (08:45)
[2019-05-17] MEDS ORDERED: FLOMAX0.4 MG PO (08:45)
[2019-05-17 09:09] LABS: APTT 35.6 SECONDS (22.8-39.4); INR 0.92 (0.85-1.17); PROTIME 11.9 SECONDS (11.6-15.0)
--- NOTE | 2019-05-17 15:03 | NUR ---
PATIENT RECEIVED FROM PACU ALERT AND ORIENTED X 4, LEFT ARM IN SLING, DRESSING TO LEFT UPPER CHEST CLEAN DRY AND INTACT, VSS. IV 20 GA TO LEFT HAND WITH NO S/S OF INFILTRATION. BBS - CLEAR AND EQUAL, ON 2 LPM O2 VIA NC, SPO2 AT 97%, CM - PACED 100% ATRIAL AT 60. DENIES ANY PAIN OR NAUSEA AT THIS TIME.
--- NOTE | 2019-05-17 17:21 | NUR ---
PATIENT UP TO BATHROOM WITH STANDBY ASSIST NO DIFFICULTY. VOIDS TO COMMODE.
--- NOTE | 2019-05-17 17:58 | NUR ---
[facility] REGARD[facility] NEW PACEMAKER PLACEMENT AND NEED FOR REP TO INTEROGATE PM IN AM.
--- NOTE | 2019-05-17 18:05 | NUR ---
PATIENT GIVEN DINNER TRAY. VSS. NO NEEDS AT THIS TIME.
[2019-05-18] VITALS (8 sets, daily range): BP systolic 110–131; BP diastolic 43–66; Ht 180.3 cm; Wt 94.1 kg
--- NOTE | 2019-05-18 09:23 | NUR ---
0700 PT RECIEVED ALERT AND ORIENTED VSS DENIES PAIN AND ALL NEEDS L CHEST INCISION CDI WITH LUE IN SLING, L HAND PIV SL, SEE SHIFT ASSESSMENT FOR DETAILS 0900 TOOK AM MEDS, SPOKE WITH DR FLANNERY NURSE KENNEDY AND STATED TO GIVE VANC AT 1000
--- NOTE | 2019-05-18 10:49 | NUR ---
ADMISSION ASSESSMENT DONE NOW INSTEAD OF REASSESSMENT.
--- NOTE | 2019-05-18 14:15 | NUR ---
1200 ATE 75% LUNCH 1410 PIV REMOVED TIP INTACT NO SIGNS OF BLEEDING, DC INSTRUCTIONS REVIEWED, DENIES ALL QUESTIONS, ASSISTED TO CAR WITH AND DCD HOME
--- NOTE | 2019-05-21 13:54 | OP ---
PATIENT NAME: ADAN KERR MEDICAL RECORD: [id number] :42 [facility] DATE: SURGEON: REID CAMPOVERDE MD DATE OF OPERATION: 05/17/2019 SURGEON: Reid Campoverde MD ANESTHESIA: General, Dr. Romeo. OPERATION PERFORMED: Insertion of dual-chamber pacing system. PREOPERATIVE DIAGNOSIS: Sick sinus syndrome. POSTOPERATIVE DIAGNOSIS: Sick sinus syndrome. INDICATION FOR OPERATION: Bradycardia, symptomatic. FINDINGS AT OPERATION: The pulse generator: Medtronic model number W1DI01, serial number [id number]. Atrial lead: Medtronic model number 4076-45, serial number [id number]. Ventricular lead: Medtronic model number 4074-52, serial number [id number]. LEAD ANALYSIS: Atrial lead: Threshold 0.2 volts, current threshold ____, impedance 580 ohms, P-wave 2.1. Ventricular lead: Threshold 0.3 volts, current threshold ____, impedance 1200 ohms, R-wave 6.8. ESTIMATED BLOOD LOSS: Less than 5 cc. DESCRIPTION OF PROCEDURE: After informed consent, adequate preoperative medication evaluation, the patient was brought to the operating room, placed on the table in the supine position. After induction of general anesthesia and appropriate monitoring devices, the left chest and neck were prepped and draped in a sterile field, utilizing Betadine scrub, alcohol, and Betadine solution. A Betadine-impregnated drape was also used. Then, 1% lidocaine was infiltrated in the left subclavicular space. Incision was made. Dissection was carried down to the fascia. A pacemaker pocket was formed. Subclavian vein was cannulated with introducers, leads placed in the heart. The above electrophysiologic study was done and felt to be in good position. The leads were secured. The leads were then connected to pulse generator and pacemaker placed in the pocket. Pacemaker fired, captured and sensed appropriately. Pocket was irrigated. Instrument count and sponge count were correct times 2. Pocket was closed in layers utilizing 3-0 Vicryl on the subcutaneous tissue, 5-0 subcuticular Monocryl on the skin. Sterile dressings were applied. The patient tolerated the procedure well and transferred to postanesthesia recovery in satisfactory condition. TRANSINT:[id number] Voice Confirmation ID: [id number] DOCUMENT ID: [id number] OPERATIVE REPORT [id number] ADAN KERR EDWARD MD at 1354 CC: [id number] DICTATION DATE: 05/17/19 1435 [employer] TIPPER: 05/17/19 1446 [facility] 05/18/19 [id number] [place] [address]
== END 2019-05-18 14:17 | disposition home or self-care (01) ==
LOC: D.OPS 07:35 → D.CVICU 14:46 → D.OPS 05-18 14:17
PROVIDERS: ATTEND Internal Medicine Cardiovascular Disease
DX: I49.5 Sick sinus syndrome (principal); R00.1 Bradycardia, unspecified; I10 Essential (primary) hypertension; E11.9 Type 2 diabetes mellitus without complications

== ENCOUNTER → 2020-05-27 07:42 | Outpatient (CLI) | payer MEDICARE ==
[2019-05-18 10:50] VITALS: BMI 28.9
[~2020-05-27 07:42] MED LIST changes: +BETAPACE 80 MG80 MG PO; +FLOMAX0.4 MG PO; +MOBIC7.5 MG PO; +ZESTRIL10 MG PO
== END | disposition home or self-care (01) ==
LOC: D.HCCECHO 07:42
PROVIDERS: ATTEND Internal Medicine Cardiovascular Disease
DX: R06.02 Shortness of breath (principal)